=== PATIENT | female | born 1950 | race American Indian/Alaskan Native ===

== ENCOUNTER 2017-07-20 01:45 | Inpatient (IN) | payer SELFPAY ==
[2017-07-20 04:07] LABS: Basophils % (Auto) 0.3 % (0.0-1.8); Eosinophils % (Auto) 0.1 % (0.0-4.3); Hematocrit 44.8 % (30.3-42.9); Hemoglobin 14.4 gm/dl (10.1-14.3); Lymphocytes # (Auto) 1.5 K/mm3 (1.2-5.4); Lymphocytes % (Auto) 12.1 % (13.4-35.0); Mean Corpuscular HGB Conc 32 % (30-34); Mean Corpuscular Hemoglobin 29 pg (28-32); Mean Corpuscular Volume 89 fl (79-97); Monocytes # (Auto) 0.4 K/mm3 (0.0-0.8); Monocytes % (Auto) 3.4 % (0.0-7.3); Platelet Count 239 K/mm3 (140-440); Red Blood Count 5.06 M/mm3 (3.65-5.03)
[2017-07-20 04:43] LABS: Alanine Aminotransferase 24 units/L (7-56); Albumin 4.1 g/dL (3.9-5); BUN/Creatinine Ratio 16; Blood Urea Nitrogen 13 mg/dL (7-17); Calcium 9.8 mg/dL (8.4-10.2); Hemolysis Index 17
[2017-07-20] MEDS ORDERED: ZOFRAN IV ONE ×2 (05:08→05:20)
[2017-07-20] MEDS ORDERED: NACL 0.9% 1000 ML 1,000 ML IV ONE (05:20)
[2017-07-20] MEDS ORDERED: DILAUDID IV ONE ×3 (05:20→14:43)
--- NOTE | 2017-07-20 05:26 | Emergency Department Report ---
HPI - General Chief Complaint: Abdominal Pain Time Seen by Provider: 07/20/17 05:09 - HPI HPI: The patient is a 66-year-old female who presents for evaluation of abdominal pain. The patient reports sudden onset of severe generalized abdominal pain 3 hours prior to her arrival. She reports constant abdominal pain since onset, 10 /10 in severity, sharp and throbbing in quality, exacerbated with movement. She has also experienced nausea. The patient denies trauma to the abdomen, fever , chest pain, cough, dyspnea, hemoptysis, diarrhea, blood in the stool, dark tarry stool, dysuria, hematuria, flank pain, genital discharge. ED Past Medical Hx - Past Medical History Previous Medical History?: No - Surgical History Past Surgical History?: Yes Additional Surgical History: hysterectomy - Social History Smoking Status: Never Smoker Substance Use Type: None ED Review of Systems ROS: Stated complaint: ABDOMINAL PAIN, VOMITING Other details as noted in HPI Constitutional: denies: fever ENT: denies: throat or neck pain Respiratory: denies: cough, shortness of breath Cardiovascular: denies: chest pain Endocrine: denies unexplained weight loss or gain Gastrointestinal: reports abdominal pain, nausea Genitourinary: denies: dysuria Musculoskeletal: denies: leg swelling Skin: denies: rash Neurological: denies: headache Hematological/Lymphatic: denies: easy bleeding or easy bruising Psych: denies sadness or hopelessness Physical Exam - Physical Exam Vital Signs: Vital Signs 07/20/17 03:27 Temperature 97.3 F L Pulse Rate 101 H Respiratory 20 Rate Blood Pressure 152/97 O2 Sat by Pulse 96 Oximetry Physical Exam: General: well-nourished, well-developed, no acute distress Head: Normocephalic, atraumatic Eyes: normal sclera ENT: Mucous membranes are pale and dry Neck: trachea midline, neck supple, No neck stiffness, no cervical adenopathy Respiratory: Breath sounds equal bilaterally, no wheezing, rales, or rhonchi Cardio: S1 and S2 present, no murmurs, rubs, gallops, capillary refill is delayed Abdomen: Normoactive bowel sounds, soft abdomen, generalized tenderness to palpation present, no rigidity, no guarding or rebound tenderness Musc: No pitting edema Skin: No rash Neuro: no facial drooping, normal speech Psych: Normal affect ED Course Vital Signs 07/20/17 03:27 Temperature 97.3 F L Pulse Rate 101 H Respiratory 20 Rate Blood Pressure 152/97 O2 Sat by Pulse 96 Oximetry ED Medical Decision Making - Lab Data Result diagrams: 07/21/17 06:00 07/22/17 08:26 - Medical Decision Making The patient was seen and examined by myself. 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 On initial evaluation, the patient was found to be in mild distress secondary to her pain. Evaluation orders are placed. IV access is established and the patient is given 1 L normal saline fluid bolus and Zofran for nausea, and IV analgesic for pain. Lab results exhibited elevated WBC of 12.7. CT scan abdomen and pelvis is ordered with IV and oral contrast. CT scan is pending and the patient is signed off to the oncoming morning shift physician Dr. marinelli, who agrees to follow-up on pending imaging and labs and to arrange ultimate appropriate disposition. Critical care attestation.: If time is entered above; I have spent that time in minutes in the direct care of this critically ill patient, excluding procedure time. ED Disposition Clinical Impression: Acute generalized abdominal pain, Dehydration, Lactic acidosis, Ischemic bowel disease, Torsion of bowel Hypertension Qualifiers: Hypertension type: essential hypertension Qualified Code(s): I10 - Essential ( primary) hypertension Disposition: 09 OP ADMIT IP TO THIS HOSP Is pt being admited?: Yes Does the pt Need Aspirin: Yes Condition: Serious Time of Disposition: 05:28
[2017-07-20] MEDS ORDERED: NACL ONE (06:44)
[2017-07-20 11:38] LABS: Bacteria,Urine 1+ /HPF (Negative); Bilirubin,Urine NEG (Negative); Blood,Urine NEG (Negative); Color,Urine Yellow (Yellow); Nitrite,Urine NEG (Negative); Protein,Urine <15 mg/dL mg/dL (Negative); Urobilinogen,Urine < 2.0 mg/dL (<2.0)
[2017-07-20] MEDS ORDERED: NACL 0.9% 500 ML 500 ML ONE (12:10)
--- NOTE | 2017-07-20 14:16 | Cat Scan Report ---
CT abdomen and pelvis with contrast: Diffuse abdominal pain. Following intravenous and oral contrast administration transverse images are obtained from low chest to the ischium with coronal and sagittal 2-D reformatted images. Images of the lung bases demonstrates mild posterior areas of atelectasis. There is a small volume of ascites mostly around the upper abdomen and pelvis. The abdominal and retroperitoneal organs appear generally normal. The stomach is distended with contrast and a small amount of contrast is present in the nondilated proximal small bowel loops. In the mid and lower abdomen there are multiple dilated small bowel loops with a mildly thickened wall that are fluid-filled but do not contain contrast. The vascular structures of the mesentery appears to have a whirl configuration and the bowel loops appear to be aggregated to the right abdomen. There is a segment of bowel is narrowed but not necessarily twisted. The cecum is midline. The patient's uterus has been removed. There is significant degenerative narrowing of L5-S1 disc. Impressions: The findings are suspicious for vascular torsion and possible ischemic bowel. Dr. Swift has been notified.
--- NOTE | 2017-07-20 14:24 | Emergency Department Report ---
Blank Doc - Documentation Documentation: I was asked by the overnight ER physician, Dr. Fuentes, to follow-up on the patient's CT scan results of the abdomen and pelvis with by mouth and IV contrast and provide appropriate disposition. The CT scan was done sometime late morning. I was just called (2 PM) by the radiologist and notified of the concern for possible small bowel torsion and possible ischemic bowel. I went and saw the patient who said that the pain started a few hours prior to presentation to the emergency department. Since she has been in the emergency department the pain has improved with some IV fluid and pain medication. She denies any past medical history. She has a past surgical history of hysterectomy. I have added IV antibiotics on to the patient. The general surgeon on-call, Dr. Pineda, has been contacted and he is going to look at the CT scan results and then call back with recommendations. Dr Pineda saw the patient in the emergency department and did a physical examination and feels that the abdominal exam is completely with suspicion of whatever may have been torsed previously has resolved. He does not feel the patient requires any emergent surgical or procedural intervention. We will get a xray of the abdomen to make sure the contrast has passed through the intestines, PO Challenge her, and give some Tylenol for a slight headache she has. I plan to admit the patient overnight, to start as an observational stay, secondary to her elevated lactic acid level and abnormal CT scan. If the patient continues to have no significant abdominal pain overnight, she can potentially be discharged tomorrow. However if the abdominal pain returns or if there is any distress, the patient will already be here. Dr Delgado has graciously accepted to admit the patient to his service.
[2017-07-20] MEDS ORDERED: TYLENOL PO ONE (16:04)
[2017-07-20] MEDS ORDERED: ZOSYN/NS 4.5GM/100ML 4.5 GM/100 ML VIAL IV ONE (16:30)
--- NOTE | 2017-07-20 18:31 | Consultation ---
History of Present Illness Consult date: 07/20/17 Reason for consult: abdominal pain Requesting physician: HAWK BELTRAN Chief complaint: abdominal pain - History of present illness History of present illness: 66yo o/w healthy woman presented to ED last night with acute onset of abdominal pain. Pt reports that earlier in the day, she had a large meal that she did not chew properly. Later, that evening, she began to have increasing painful abdominal cramps that were associated with nausea and vomiting. She vomited small amounts that reflected what she had for lunch. She was able to tolerate the contrast without nausea or vomiting. She reports that now the pain and cramps have completely resolved. The nausea and vomiting are gone. She only has a headache and weakness now. She has never had anything like this before. no history of bowel obstruction. No complications during her hysterectomy procedure. Past History Past Surgical History: hysterectomy (no complications) Social history: denies: smoking, alcohol abuse, IV drug use Family history: no significant family history Medications and Allergies Allergies Allergy/AdvReac Type Severity Reaction Status Date / Time No Known Allergies Allergy Unverified 07/20/17 03:27 Active Meds: Active Medications Heparin Sodium (Porcine) (Heparin) 5,000 unit SUB-Q Q8HR MO Review of Systems - Constitutional weakness, no weight loss, no weight gain, no fever, no chills, no sweats, no night sweats - EENT Ears, nose, mouth and throat: other (dry mouth), no nasal congestion, no nasal discharge, no sinus pressure, no sinus pain - Cardiovascular no chest pain, no palpitations, no rapid/irregular heart beat - Respiratory no cough, no cough with sputum - Gastrointestinal abdominal pain (resolved), nausea (resolve), vomiting (resolved), no diarrhea, no constipation, no change in bowel habits, no hematemesis, no coffee ground emesis, no BRBPR, no melena, no hematochezia, no heartburn, no indigestion, no dyspepsia/bloating - Genitourinary Genitourinary: no dysuria - Integumentary no rash - Neurological weakness, headaches - Hematologic/Lymphatic no easy bruising, no easy bleeding Exam Vital Signs Temp Pulse Resp BP Pulse Ox 97.3 F L 101 H 20 152/97 96 07/20/17 03:27 07/20/17 03:27 07/20/17 03:27 07/20/17 03:27 07/20/17 03:27 - General physical appearance Positive: well developed, well nourished, no distress, no pain, other (very pleasant. Does not appear ill. Smiling during interview) - Eyes Positive: normal occular movement. Negative: icteric - Respiratory Positive: normal expansion, normal respiratory effort, clear to auscultation - Cardiovascular Rhythm: regular - Abdomen Abdomen: Present: soft, bowel sounds normal, surgical scars (well healed). Absent: tender, distended, masses, guarding, rigid, wound - Integumentary no rash - Neurologic Neurologic: alert and oriented to time, place and person, motor strength and sensation are grossly intact - Psychiatric Psychiatric: appropriate mood/affect, intact judgment & insight Results - Labs 07/20/17 03:38 07/20/17 03:38 Abnormal lab results 07/20/17 07/20/17 07/20/17 Range/Units 03:38 03:38 06:08 WBC 12.7 H (4.5-11.0) K/mm3 RBC 5.06 H (3.65-5.03) M/mm3 Hgb 14.4 H (10.1-14.3) gm/dl Hct 44.8 H (30.3-42.9) % Lymph % (Auto) 12.1 L (13.4-35.0) % Seg Neutrophils % 84.1 H (40.0-70.0) % Seg Neutrophils # 10.6 H (1.8-7.7) K/mm3 Potassium 3.5 L (3.6-5.0) mmol/L Carbon Dioxide 18 L (22-30) mmol/L Glucose 160 H (65-100) mg/dL Lactic Acid 5.10 H* (0.7-2.0) mmol/L Ur Specific [place] (1.003-1.030) 07/20/17 07/20/17 Range/Units 08:25 11:20 WBC (4.5-11.0) K/mm3 RBC (3.65-5.03) M/mm3 Hgb (10.1-14.3) gm/dl Hct (30.3-42.9) % Lymph % (Auto) (13.4-35.0) % Seg Neutrophils % (40.0-70.0) % Seg Neutrophils # (1.8-7.7) K/mm3 Potassium (3.6-5.0) mmol/L Carbon Dioxide (22-30) mmol/L Glucose (65-100) mg/dL Lactic Acid 2.80 H* (0.7-2.0) mmol/L Ur Specific [place] 1.041 H (1.003-1.030) Diabetes panel 07/20/17 Range/Units 03:38 Sodium 141 (137-145) mmol/L Potassium 3.5 L (3.6-5.0) mmol/L Chloride 101.6 (98-107) mmol/L Carbon Dioxide 18 L (22-30) mmol/L BUN 13 (7-17) mg/dL Creatinine 0.8 (0.7-1.2) mg/dL Glucose 160 H (65-100) mg/dL Calcium 9.8 (8.4-10.2) mg/dL AST 28 (5-40) units/L ALT 24 (7-56) units/L Alkaline Phosphatase 101 (35-129) units/L Total Protein 7.6 (6.3-8.2) g/dL Albumin 4.1 (3.9-5) g/dL Calcium panel 07/20/17 Range/Units 03:38 Calcium 9.8 (8.4-10.2) mg/dL Albumin 4.1 (3.9-5) g/dL Pituitary panel 07/20/17 Range/Units 03:38 Sodium 141 (137-145) mmol/L Potassium 3.5 L (3.6-5.0) mmol/L Chloride 101.6 (98-107) mmol/L Carbon Dioxide 18 L (22-30) mmol/L BUN 13 (7-17) mg/dL Creatinine 0.8 (0.7-1.2) mg/dL Glucose 160 H (65-100) mg/dL Calcium 9.8 (8.4-10.2) mg/dL Adrenal panel 07/20/17 Range/Units 03:38 Sodium 141 (137-145) mmol/L Potassium 3.5 L (3.6-5.0) mmol/L Chloride 101.6 (98-107) mmol/L Carbon Dioxide 18 L (22-30) mmol/L BUN 13 (7-17) mg/dL Creatinine 0.8 (0.7-1.2) mg/dL Glucose 160 H (65-100) mg/dL Calcium 9.8 (8.4-10.2) mg/dL Total Bilirubin 0.30 (0.1-1.2) mg/dL AST 28 (5-40) units/L ALT 24 (7-56) units/L Alkaline Phosphatase 101 (35-129) units/L Total Protein 7.6 (6.3-8.2) g/dL Albumin 4.1 (3.9-5) g/dL - Imaging CT scan - abdomen: report reviewed, image reviewed Assessment and Plan - Patient Problems (1) Acute generalized abdominal pain Onset Date: ~07/19/17 Current Visit: Yes Status: Acute Plan to address problem: Issue has resolved. There was a concern for possible obstruction. Clinically, patient does not have anything to suggest obstruction or bowel compromise. No surgical intervention needed at this time. Rec: 1) Clear liquid diet 2) hydration with IV fluid tonight 3) labs in AM. Thank you for the consult. Will follow with you. time=60min
[2017-07-20] MEDS ORDERED: CARDIZEM IV ONE (18:38)
--- NOTE | 2017-07-20 18:40 | History and Physical Report ---
History of Present Illness Date of examination: 07/20/17 Date of admission: 07/20/17 16:27 Chief complaint: N History of present illness: History of present illness: 66 y/o AAF with no significant PMH comes last night for acute onset of abdominal pain associated with nausea and vomiting .Apparently she had a large meal and did not chew properly.Has been vomiting the food she has ingested.Had CT abdomen this am which showed vascular torsion and poss ischemic bowel.Her symptoms resolved while in ER by the time she was evaluated by surgery. Surgery feels that volvulus /vascular torsion resolved spontaneously..Patient had no symptoms for past 4hrs.Still feeling very weak because of multiple episodes of vomiting.Feels very weak. No fever or chills.no recent travel.Did not eat outside. Past History PMH No HTN Past Surgical History: hysterectomy (no complications) Social history: denies: smoking, alcohol abuse, IV drug use Family history: no significant family history Review of Systems - Constitutional weakness, no weight loss, no weight gain, no fever, no chills, no sweats, no night sweats - EENT Ears, nose, mouth and throat: other (dry mouth), no nasal congestion, no nasal discharge, no sinus pressure, no sinus pain - Cardiovascular no chest pain, no palpitations, no rapid/irregular heart beat - Respiratory no cough, no cough with sputum - Gastrointestinal abdominal pain (resolved), nausea (resolve), vomiting (resolved), no diarrhea, no constipation, no change in bowel habits, no hematemesis, no coffee ground emesis, no BRBPR, no melena, no hematochezia, no heartburn, no indigestion, no dyspepsia/bloating - Genitourinary Genitourinary: no dysuria - Integumentary no rash - Neurological weakness, headaches - Hematologic/Lymphatic no easy bruising, no easy bleeding Past History Past Surgical History: hysterectomy (no complications) Social history: denies: smoking, alcohol abuse, IV drug use Family history: no significant family history Medications and Allergies Allergies Allergy/AdvReac Type Severity Reaction Status Date / Time No Known Allergies Allergy Unverified 07/20/17 03:27 Active Meds: Active Medications Heparin Sodium (Porcine) (Heparin) 5,000 unit SUB-Q Q8HR MO Exam - Physical Exam Narrative exam: Lying comfortably - Constitutional Vitals: Temp Pulse Resp BP Pulse Ox 97.3 F L 101 H 18 164/99 96 07/20/17 03:27 07/20/17 03:27 07/20/17 06:06 07/20/17 06:46 07/20/17 06:46 General appearance: Present: no acute distress, well-nourished - EENT Eyes: Present: PERRL ENT: hearing intact, clear oral mucosa - Neck Neck: Present: supple, normal ROM - Respiratory Respiratory effort: normal Respiratory: bilateral: CTA - Cardiovascular Heart rate: 70 Rhythm: regular Heart Sounds: Present: S1 & S2. Absent: rub, click - Extremities Extremities: no ischemia, pulses intact, pulses symmetrical, No edema Peripheral Pulses: within normal limits - Abdominal General gastrointestinal: Present: soft, non-tender, non-distended, normal bowel sounds Female genitourinary: Present: normal - Rectal Rectal Exam: deferred - Integumentary Integumentary: Present: clear, warm, dry - Musculoskeletal Musculoskeletal: gait normal, strength equal bilaterally - Psychiatric Psychiatric: appropriate mood/affect, intact judgment & insight - Neurologic Neurologic: CNII-XII intact, moves all extremities - Allied Health Allied health notes reviewed: nursing, case management Results - Labs CBC & Chem 7: 07/20/17 03:38 07/20/17 03:38 Labs: Laboratory Last Values WBC 12.7 K/mm3 (4.5-11.0) H 07/20/17 03:38 RBC 5.06 M/mm3 (3.65-5.03) H 07/20/17 03:38 Hgb 14.4 gm/dl (10.1-14.3) H 07/20/17 03:38 Hct 44.8 % (30.3-42.9) H 07/20/17 03:38 MCV 89 fl (79-97) 07/20/17 03:38 MCH 29 pg (28-32) 07/20/17 03:38 MCHC 32 % (30-34) 07/20/17 03:38 RDW 15.0 % (13.2-15.2) 07/20/17 03:38 Plt Count 239 K/mm3 (140-440) 07/20/17 03:38 Lymph % (Auto) 12.1 % (13.4-35.0) L 07/20/17 03:38 [place] % (Auto) 3.4 % (0.0-7.3) 07/20/17 03:38 Eos % (Auto) 0.1 % (0.0-4.3) 07/20/17 03:38 Baso % (Auto) 0.3 % (0.0-1.8) 07/20/17 03:38 Lymph # 1.5 K/mm3 (1.2-5.4) 07/20/17 03:38 Barren # 0.4 K/mm3 (0.0-0.8) 07/20/17 03:38 Eos # 0.0 K/mm3 (0.0-0.4) 07/20/17 03:38 Baso # 0.0 K/mm3 (0.0-0.1) 07/20/17 03:38 Seg Neutrophils % 84.1 % (40.0-70.0) H 07/20/17 03:38 Seg Neutrophils # 10.6 K/mm3 (1.8-7.7) H 07/20/17 03:38 Sodium 141 mmol/L (137-145) 07/20/17 03:38 Potassium 3.5 mmol/L (3.6-5.0) L 07/20/17 03:38 Chloride 101.6 mmol/L (98-107) 07/20/17 03:38 Carbon Dioxide 18 mmol/L (22-30) L 07/20/17 03:38 Anion Gap 25 mmol/L 07/20/17 03:38 BUN 13 mg/dL (7-17) 07/20/17 03:38 Creatinine 0.8 mg/dL (0.7-1.2) 07/20/17 03:38 Estimated GFR > 60 ml/min 07/20/17 03:38 BUN/Creatinine Ratio 16 % 07/20/17 03:38 Glucose 160 mg/dL (65-100) H 07/20/17 03:38 Lactic Acid 2.80 mmol/L (0.7-2.0) H* 07/20/17 08:25 Calcium 9.8 mg/dL (8.4-10.2) 07/20/17 03:38 Total Bilirubin 0.30 mg/dL (0.1-1.2) 07/20/17 03:38 AST 28 units/L (5-40) 07/20/17 03:38 ALT 24 units/L (7-56) 07/20/17 03:38 Alkaline Phosphatase 101 units/L (35-129) 07/20/17 03:38 Total Protein 7.6 g/dL (6.3-8.2) 07/20/17 03:38 Albumin 4.1 g/dL (3.9-5) 07/20/17 03:38 Albumin/Globulin Ratio 1.2 % 07/20/17 03:38 Lipase 18 units/L (13-60) 07/20/17 03:38 Urine Color Yellow (Yellow) 07/20/17 11:20 Urine Turbidity Clear (Clear) 07/20/17 11:20 Urine pH 6.0 (5.0-7.0) 07/20/17 11:20 Ur Specific [place] 1.041 (1.003-1.030) H 07/20/17 11:20 Urine Protein <15 mg/dl mg/dL (Negative) 07/20/17 11:20 Urine Glucose (UA) Neg mg/dL (Negative) 07/20/17 11:20 Urine Ketones Tr mg/dL (Negative) 07/20/17 11:20 Urine Blood Neg (Negative) 07/20/17 11:20 Urine Nitrite Neg (Negative) 07/20/17 11:20 Urine Bilirubin Neg (Negative) 07/20/17 11:20 Urine Urobilinogen < 2.0 mg/dL (<2.0) 07/20/17 11:20 Ur Leukocyte Esterase Tr (Negative) 07/20/17 11:20 Urine WBC (Auto) 6.0 /HPF (0.0-6.0) 07/20/17 11:20 Urine RBC (Auto) 1.0 /HPF (0.0-6.0) 07/20/17 11:20 U Epithel Cells (Auto) 1.0 /HPF (0-13.0) 07/20/17 11:20 Urine Bacteria (Auto) 1+ /HPF (Negative) 07/20/17 11:20 - Imaging and Cardiology CT scan - abdomen: report reviewed (Suspicious for vascular torsion and ischemic bowel ) Assessment and Plan Advance Directives: Yes (full code) VTE prophylaxis?: Chemical Plan of care discussed with patient/family: Yes - Patient Problems (1) Acute generalized abdominal pain Onset Date: ~07/19/17 Current Visit: Yes Status: Acute Plan to address problem: Patient had transient obstructive ileus /vascular torsion which apparently resolved spontaneously while in ER.Clinically better while in ER during my exam. Feels weak and dehydrated. Hence admission for IV fluids and sx tx for vomiting. (2) Hypertension Current Visit: Yes Status: Acute Qualifiers: Hypertension type: essential hypertension Qualified Code(s): I10 - Essential (primary) hypertension Plan to address problem: New onset Probably sec to pain. Will treat with IV Hydralazine and trend BP readings.Initiate anti hypertensives at discharge if HTN confirmed. (3) Dehydration Current Visit: Yes Status: Acute Plan to address problem: IV fluids (4) Lactic acidosis Current Visit: Yes Status: Acute Plan to address problem: Elevated lactic acid sec to vomiting.No sepsis.No Abx at this point (5) Hypokalemia Current Visit: Yes Status: Acute Plan to address problem: KCL supplemented (6) DVT prophylaxis Current Visit: Yes Status: Acute Plan to address problem: on Lovenox
[2017-07-20] MEDS ORDERED: MORPHINE IV PRN (18:41)
[2017-07-20] MEDS ORDERED: AMBIEN PO PRN (18:41)
[2017-07-20] MEDS ORDERED: REGLAN IV PRN (18:41)
[2017-07-20] MEDS ORDERED: DULCOLAX PR PRN (18:41)
[2017-07-20] MEDS ORDERED: TYLENOL PO PRN (18:41)
[2017-07-20] MEDS ORDERED: MILK OF MAGNESIA PO PRN (18:41)
--- NOTE | 2017-07-20 19:20 | XRay Report ---
FINAL REPORT PROCEDURE: XR ABDOMEN 2V TECHNIQUE: Abdominal series, including supine and upright AP views. HISTORY: Abd pain COMPARISON: No prior studies are available for comparison. FINDINGS: There appears to be a large amount of oral contrast nearly filling the stomach. There also is faintly visualized contrast excreting from the kidneys and filling the urinary bladder. These structures show no focal abnormalities. I do not see evidence of bowel obstruction or free intraperitoneal gas. No abnormal masses are detected. Moderate degenerative changes seen in the lower lumbar spine. No acute bony abnormalities are identified. IMPRESSION: Contrast agents visualized as described. No acute abnormalities are identified. Degenerative changes lower lumbar spine.
[2017-07-20] MEDS ORDERED: K-DUR PO ONE (19:59)
[2017-07-20] MEDS ORDERED: HEPARIN SUB-Q SCH (22:00)
[2017-07-20] MEDS: PERCOCET 5/325 PO PRN (22:27)
[2017-07-20] MEDS: PEPCID IV SCH (22:29)
[2017-07-20] MEDS: D5NS 1,000 ML IV SCH (22:30)
[2017-07-20] MEDS: LOVENOX SUB-Q SCH (22:30)
[2017-07-21] MEDS: APRESOLINE IV PRN ×3 (01:39→21:36)
[2017-07-21] MEDS: ZOFRAN IV PRN (02:24)
[2017-07-21] MEDS: MORPHINE IV PRN ×2 (06:01→10:03)
[2017-07-21 06:44] LABS: Basophils % (Auto) 0.5 % (0.0-1.8); Eosinophils % (Auto) 0.1 % (0.0-4.3); Hematocrit 42.2 % (30.3-42.9); Hemoglobin 14.1 gm/dl (10.1-14.3); Lymphocytes # (Auto) 0.9 K/mm3 (1.2-5.4); Lymphocytes % (Auto) 9.9 % (13.4-35.0); Mean Corpuscular HGB Conc 33 % (30-34); Mean Corpuscular Hemoglobin 29 pg (28-32); Mean Corpuscular Volume 86 fl (79-97); Monocytes # (Auto) 0.5 K/mm3 (0.0-0.8); Monocytes % (Auto) 5.1 % (0.0-7.3); Platelet Count 266 K/mm3 (140-440); Red Blood Count 4.93 M/mm3 (3.65-5.03); Red Cell Distribution Width 14.3 % (13.2-15.2)
[2017-07-21 07:12] LABS: Alanine Aminotransferase 19 units/L (7-56); Albumin 3.9 g/dL (3.9-5); BUN/Creatinine Ratio 13; Blood Urea Nitrogen 8 mg/dL (7-17); Calcium 9.5 mg/dL (8.4-10.2); Hemolysis Index 6
[2017-07-21] MEDS: D5NS 1,000 ML IV SCH ×2 (08:07→23:53)
--- NOTE | 2017-07-21 08:49 | Progress Note ---
Assessment and Plan Assessment and plan: 66 y/o AAF with no significant PMH comes last night for acute onset of abdominal pain associated with nausea and vomiting .Apparently she had a large meal and did not chew properly.Has been vomiting the food she has ingested.Had CT abdomen this am which showed vascular torsion .Her symptoms resolved while in ER by the time she was evaluated by surgery. 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 HTN urgency optimize meds Lactic acidosis: due to Acute abdomen, now resolved; not due to sepsis Hypokalemia KCL supplemented DVT prophylaxis on Lovenox History Interval history: had n/v still and denies abdominal pain no cp, no sob, no fevers, no focal weakness Hospitalist Physical - Constitutional Vitals: Temp Pulse Resp BP Pulse Ox 98.1 F 90 18 151/79 100 07/21/17 03:54 07/21/17 03:54 07/21/17 03:54 07/21/17 03:54 07/21/17 03:54 General appearance: Present: no acute distress, well-nourished - EENT Eyes: Present: PERRL ENT: hearing intact - Neck Neck: Present: supple - Respiratory Respiratory effort: normal Respiratory: bilateral: CTA - Cardiovascular Rhythm: regular Heart Sounds: Present: S1 & S2 - Extremities Extremities: no ischemia Peripheral Pulses: within normal limits - Abdominal General gastrointestinal: soft, non-tender - Integumentary Integumentary: Present: clear, warm - Psychiatric Psychiatric: appropriate mood/affect, cooperative - Neurologic Neurologic: CNII-XII intact, moves all extremities Results - Labs CBC & Chem 7: 07/21/17 06:00 07/22/17 08:26 Labs: Laboratory Last Values WBC 8.8 K/mm3 (4.5-11.0) 07/21/17 06:00 RBC 4.93 M/mm3 (3.65-5.03) 07/21/17 06:00 Hgb 14.1 gm/dl (10.1-14.3) 07/21/17 06:00 Hct 42.2 % (30.3-42.9) 07/21/17 06:00 MCV 86 fl (79-97) 07/21/17 06:00 MCH 29 pg (28-32) 07/21/17 06:00 MCHC 33 % (30-34) 07/21/17 06:00 RDW 14.3 % (13.2-15.2) 07/21/17 06:00 Plt Count 266 K/mm3 (140-440) 07/21/17 06:00 Lymph % (Auto) 9.9 % (13.4-35.0) L 07/21/17 06:00 [place] % (Auto) 5.1 % (0.0-7.3) 07/21/17 06:00 Eos % (Auto) 0.1 % (0.0-4.3) 07/21/17 06:00 Baso % (Auto) 0.5 % (0.0-1.8) 07/21/17 06:00 Lymph # 0.9 K/mm3 (1.2-5.4) L 07/21/17 06:00 [place] # 0.5 K/mm3 (0.0-0.8) 07/21/17 06:00 Eos # 0.0 K/mm3 (0.0-0.4) 07/21/17 06:00 Baso # 0.0 K/mm3 (0.0-0.1) 07/21/17 06:00 Seg Neutrophils % 84.4 % (40.0-70.0) H 07/21/17 06:00 Seg Neutrophils # 7.4 K/mm3 (1.8-7.7) 07/21/17 06:00 Sodium 140 mmol/L (137-145) 07/21/17 06:00 Potassium 3.5 mmol/L (3.6-5.0) L 07/21/17 06:00 Chloride 101.4 mmol/L (98-107) 07/21/17 06:00 Carbon Dioxide 23 mmol/L (22-30) 07/21/17 06:00 Anion Gap 19 mmol/L 07/21/17 06:00 BUN 8 mg/dL (7-17) 07/21/17 06:00 Creatinine 0.6 mg/dL (0.7-1.2) L 07/21/17 06:00 Estimated GFR > 60 ml/min 07/21/17 06:00 BUN/Creatinine Ratio 13 % 07/21/17 06:00 Glucose 142 mg/dL (65-100) H 07/21/17 06:00 Hemoglobin A1c 5.3 % (4-6) 07/20/17 20:11 Lactic Acid 2.80 mmol/L (0.7-2.0) H* 07/20/17 08:25 Calcium 9.5 mg/dL (8.4-10.2) 07/21/17 06:00 Total Bilirubin 0.50 mg/dL (0.1-1.2) 07/21/17 06:00 AST 24 units/L (5-40) 07/21/17 06:00 ALT 19 units/L (7-56) 07/21/17 06:00 Alkaline Phosphatase 86 units/L (35-129) 07/21/17 06:00 Total Protein 7.2 g/dL (6.3-8.2) 07/21/17 06:00 Albumin 3.9 g/dL (3.9-5) 07/21/17 06:00 Albumin/Globulin Ratio 1.2 % 07/21/17 06:00 Lipase 18 units/L (13-60) 07/20/17 03:38 Urine Color Yellow (Yellow) 07/20/17 11:20 Urine Turbidity Clear (Clear) 07/20/17 11:20 Urine pH 6.0 (5.0-7.0) 07/20/17 11:20 Ur Specific [place] 1.041 (1.003-1.030) H 07/20/17 11:20 Urine Protein <15 mg/dl mg/dL (Negative) 07/20/17 11:20 Urine Glucose (UA) Neg mg/dL (Negative) 07/20/17 11:20 Urine Ketones Tr mg/dL (Negative) 07/20/17 11:20 Urine Blood Neg (Negative) 07/20/17 11:20 Urine Nitrite Neg (Negative) 07/20/17 11:20 Urine Bilirubin Neg (Negative) 07/20/17 11:20 Urine Urobilinogen < 2.0 mg/dL (<2.0) 07/20/17 11:20 Ur Leukocyte Esterase Tr (Negative) 07/20/17 11:20 Urine WBC (Auto) 6.0 /HPF (0.0-6.0) 07/20/17 11:20 Urine RBC (Auto) 1.0 /HPF (0.0-6.0) 07/20/17 11:20 U Epithel Cells (Auto) 1.0 /HPF (0-13.0) 07/20/17 11:20 Urine Bacteria (Auto) 1+ /HPF (Negative) 07/20/17 11:20 - Imaging and Cardiology Abdominal x-ray: image reviewed (no acute findings)
[2017-07-21] MEDS: PEPCID IV SCH ×2 (10:05→23:57)
[2017-07-21] MEDS ORDERED: KCL 10MEQ/100ML 10 MEQ/100 ML BAG IV SCH (12:00)
[2017-07-21] MEDS ORDERED: KCL 40 MEQ in NACL 0.9% 500 ML 500 ML IV ONE (13:00)
[2017-07-21] MEDS ORDERED: FIORICET PO ONE (15:00)
--- NOTE | 2017-07-21 15:22 | Progress Note ---
Assessment and Plan - Patient Problems (1) Acute generalized abdominal pain Onset Date: ~07/19/17 Current Visit: Yes Status: Acute Plan to address problem: Even though her labs are normal, she clinically does not look well. Her abdominal exam is completely benign. I do not feel this is related to the CT findings from yesterday. In talking to them (patient and daughter) more, it sounds like the patient gets like this when she has a bad headache. Nothing has helped the headache so far. She normally takes BC powder. I discussed all this with Dr. Solis. I wonder if this clinical appearance is related to her headaches as her labs, abdominal exam, and vitals are all normal. Rec: 1) Clear liquid diet 2) Fioricet for headache 3) Scheduled Zofran for today 4) Simethicone for gassy feeling 5) Abd X-ray Will follow with you. time=30min Subjective Date of service: 07/21/17 Patient Reports: Positive: no flatus, no bowel movement, nausea, vomiting, other (still with headache. Feels pressure in abdomen. No pain in abdomen. ) Objective Vital Signs - 12hr 07/21/17 07/21/17 07/21/17 03:54 07:56 10:14 Temperature 98.1 F 99.6 F Pulse Rate 90 90 90 Respiratory 18 18 Rate Blood Pressure 151/79 161/92 161/92 O2 Sat by Pulse 100 98 Oximetry 07/21/17 12:48 Temperature 99.1 F Pulse Rate 94 H Respiratory 18 Rate Blood Pressure 162/77 O2 Sat by Pulse 98 Oximetry - General physical appearance other (does not look well. ) - Eyes normal occular movement - Respiratory normal expansion, normal respiratory effort - Abdomen soft, not tender, bowel sounds hypoactive, not guarding, not rigid, other (no tympany) - Integumentary no rash - Psychiatric oriented to time, oriented to person, oriented to place, speech is normal, memory intact - Labs 07/21/17 06:00 07/21/17 06:00 Diabetes panel 07/20/17 07/21/17 Range/Units 20:11 06:00 Sodium 140 (137-145) mmol/L Potassium 3.5 L (3.6-5.0) mmol/L Chloride 101.4 (98-107) mmol/L Carbon Dioxide 23 (22-30) mmol/L BUN 8 (7-17) mg/dL Creatinine 0.6 L (0.7-1.2) mg/dL Glucose 142 H (65-100) mg/dL Hemoglobin A1c 5.3 (4-6) % Calcium 9.5 (8.4-10.2) mg/dL AST 24 (5-40) units/L ALT 19 (7-56) units/L Alkaline Phosphatase 86 (35-129) units/L Total Protein 7.2 (6.3-8.2) g/dL Albumin 3.9 (3.9-5) g/dL Calcium panel 07/21/17 Range/Units 06:00 Calcium 9.5 (8.4-10.2) mg/dL Albumin 3.9 (3.9-5) g/dL Pituitary panel 07/21/17 Range/Units 06:00 Sodium 140 (137-145) mmol/L Potassium 3.5 L (3.6-5.0) mmol/L Chloride 101.4 (98-107) mmol/L Carbon Dioxide 23 (22-30) mmol/L BUN 8 (7-17) mg/dL Creatinine 0.6 L (0.7-1.2) mg/dL Glucose 142 H (65-100) mg/dL Calcium 9.5 (8.4-10.2) mg/dL Adrenal panel 07/21/17 Range/Units 06:00 Sodium 140 (137-145) mmol/L Potassium 3.5 L (3.6-5.0) mmol/L Chloride 101.4 (98-107) mmol/L Carbon Dioxide 23 (22-30) mmol/L BUN 8 (7-17) mg/dL Creatinine 0.6 L (0.7-1.2) mg/dL Glucose 142 H (65-100) mg/dL Calcium 9.5 (8.4-10.2) mg/dL Total Bilirubin 0.50 (0.1-1.2) mg/dL AST 24 (5-40) units/L ALT 19 (7-56) units/L Alkaline Phosphatase 86 (35-129) units/L Total Protein 7.2 (6.3-8.2) g/dL Albumin 3.9 (3.9-5) g/dL
--- NOTE | 2017-07-21 15:42 | XRay Report ---
FINAL REPORT PROCEDURE: XR ABDOMEN 1V AP TECHNIQUE: Abdominal radiograph, single supine AP view. HISTORY: abdominal pain COMPARISON: No prior studies are available for comparison. FINDINGS: Bowel gas pattern:Nonobstructive. Masses or calcifications:None. Bony structures:No significant abnormality. Other:None. IMPRESSION: No acute or focal abnormality
[2017-07-21] MEDS: FIORICET PO PRN (21:33)
--- NOTE | 2017-07-21 21:41 | Event Note ---
Date: 07/21/17 Reviewed xray. Went to see patient. Patient was resting comfortably. Spoke with daughter. She reports that patient tried fioricet and seemed to feel better. Patient reported to her that she felt gassy. Patient was able to sit up in chair and walk a short distance. I told the daughter that the xray was normal. Will try to get headache and gas under control and then reassess her overall condition.
[2017-07-21] MEDS: LOVENOX SUB-Q SCH (23:57)
[2017-07-21] MEDS: MYLICON PO PRN (23:58)
[2017-07-22] MEDS: FIORICET PO PRN (05:40)
[2017-07-22 08:52] LABS: BUN/Creatinine Ratio 12; Blood Urea Nitrogen 7 mg/dL (7-17); Calcium 9.4 mg/dL (8.4-10.2); Hemolysis Index 5
[2017-07-22] MEDS: APRESOLINE IV PRN (09:35)
[2017-07-22] MEDS: ZOFRAN IV PRN ×2 (09:36→20:46)
[2017-07-22] MEDS: PEPCID IV SCH ×2 (12:52→22:32)
[2017-07-22] MEDS: ZESTRIL PO SCH (12:52)
[2017-07-22] MEDS: D5NS 1,000 ML IV SCH (12:53)
[2017-07-22] MEDS ORDERED: ZOFRAN IV PRN (13:51)
[2017-07-22] MEDS ORDERED: PHENERGAN PR PRN (13:51)
--- NOTE | 2017-07-22 13:53 | Progress Note ---
Assessment and Plan Assessment and plan: 66 y/o AAF with no significant PMH comes last night for acute onset of abdominal pain associated with nausea and vomiting .Apparently she had a large meal and did not chew properly.Has been vomiting the food she has ingested.Had CT abdomen this am which showed vascular torsion .Her symptoms resolved while in ER by the time she was evaluated by surgery. Surgery feels that volvulus / vascular torsion resolved spontaneously, but she is still having n/v Acute intestinal volvulus -has now resolved Intractable N/V appears to be related to hydralazine administration -dc hydralazine, phernegan prn REEDER now resolved, did not respond to fioricet, so will dc it HTN urgency optimize meds, avoid hydralazine Lactic acidosis: due to Acute abdomen, now resolved; not due to sepsis Hypokalemia KCL supplemented DVT prophylaxis on Lovenox History Interval history: had n/v still and denies abdominal pain no cp, no sob, no fevers, no focal weakness Hospitalist Physical - Physical exam Narrative exam: General appearance: Present: no acute distress, well-nourished - EENT Eyes: Present: PERRL ENT: hearing intact - Neck Neck: Present: supple - Respiratory Respiratory effort: normal Respiratory: bilateral: CTA - Cardiovascular Rhythm: regular Heart Sounds: Present: S1 & S2 - Extremities Extremities: no ischemia Peripheral Pulses: within normal limits - Abdominal General gastrointestinal: soft, non-tender - Integumentary Integumentary: Present: clear, warm - Psychiatric Psychiatric: appropriate mood/affect, cooperative - Neurologic Neurologic: CNII-XII intact, moves all extremities - Constitutional Vitals: Temp Pulse Resp BP Pulse Ox 99.7 F H 100 H 20 140/77 96 07/22/17 12:18 07/22/17 12:52 07/22/17 12:18 07/22/17 12:52 07/22/17 12:18 General appearance: Present: no acute distress, well-nourished Results - Labs CBC & Chem 7: 07/21/17 06:00 07/22/17 08:26 Labs: Laboratory Last Values WBC 8.8 K/mm3 (4.5-11.0) 07/21/17 06:00 RBC 4.93 M/mm3 (3.65-5.03) 07/21/17 06:00 Hgb 14.1 gm/dl (10.1-14.3) 07/21/17 06:00 Hct 42.2 % (30.3-42.9) 07/21/17 06:00 MCV 86 fl (79-97) 07/21/17 06:00 MCH 29 pg (28-32) 07/21/17 06:00 MCHC 33 % (30-34) 07/21/17 06:00 RDW 14.3 % (13.2-15.2) 07/21/17 06:00 Plt Count 266 K/mm3 (140-440) 07/21/17 06:00 Lymph % (Auto) 9.9 % (13.4-35.0) L 07/21/17 06:00 [place] % (Auto) 5.1 % (0.0-7.3) 07/21/17 06:00 Eos % (Auto) 0.1 % (0.0-4.3) 07/21/17 06:00 Baso % (Auto) 0.5 % (0.0-1.8) 07/21/17 06:00 Lymph # 0.9 K/mm3 (1.2-5.4) L 07/21/17 06:00 [place] # 0.5 K/mm3 (0.0-0.8) 07/21/17 06:00 Eos # 0.0 K/mm3 (0.0-0.4) 07/21/17 06:00 Baso # 0.0 K/mm3 (0.0-0.1) 07/21/17 06:00 Seg Neutrophils % 84.4 % (40.0-70.0) H 07/21/17 06:00 Seg Neutrophils # 7.4 K/mm3 (1.8-7.7) 07/21/17 06:00 Sodium 137 mmol/L (137-145) 07/22/17 08:26 Potassium 3.4 mmol/L (3.6-5.0) L 07/22/17 08:26 Chloride 100.8 mmol/L (98-107) 07/22/17 08:26 Carbon Dioxide 23 mmol/L (22-30) 07/22/17 08:26 Anion Gap 17 mmol/L 07/22/17 08:26 BUN 7 mg/dL (7-17) 07/22/17 08:26 Creatinine 0.6 mg/dL (0.7-1.2) L 07/22/17 08:26 Estimated GFR > 60 ml/min 07/22/17 08:26 BUN/Creatinine Ratio 12 % 07/22/17 08:26 Glucose 118 mg/dL (65-100) H 07/22/17 08:26 Hemoglobin A1c 5.3 % (4-6) 07/20/17 20:11 Lactic Acid 2.80 mmol/L (0.7-2.0) H* 07/20/17 08:25 Calcium 9.4 mg/dL (8.4-10.2) 07/22/17 08:26 Phosphorus 2.20 mg/dL (2.5-4.5) L 07/22/17 08:26 Magnesium 1.90 mg/dL (1.7-2.3) 07/22/17 08:26 Total Bilirubin 0.50 mg/dL (0.1-1.2) 07/21/17 06:00 AST 24 units/L (5-40) 07/21/17 06:00 ALT 19 units/L (7-56) 07/21/17 06:00 Alkaline Phosphatase 86 units/L (35-129) 07/21/17 06:00 Total Protein 7.2 g/dL (6.3-8.2) 07/21/17 06:00 Albumin 3.9 g/dL (3.9-5) 07/21/17 06:00 Albumin/Globulin Ratio 1.2 % 07/21/17 06:00 Lipase 18 units/L (13-60) 07/20/17 03:38 Urine Color Yellow (Yellow) 07/20/17 11:20 Urine Turbidity Clear (Clear) 07/20/17 11:20 Urine pH 6.0 (5.0-7.0) 07/20/17 11:20 Ur Specific [place] 1.041 (1.003-1.030) H 07/20/17 11:20 Urine Protein <15 mg/dl mg/dL (Negative) 07/20/17 11:20 Urine Glucose (UA) Neg mg/dL (Negative) 07/20/17 11:20 Urine Ketones Tr mg/dL (Negative) 07/20/17 11:20 Urine Blood Neg (Negative) 07/20/17 11:20 Urine Nitrite Neg (Negative) 07/20/17 11:20 Urine Bilirubin Neg (Negative) 07/20/17 11:20 Urine Urobilinogen < 2.0 mg/dL (<2.0) 07/20/17 11:20 Ur Leukocyte Esterase Tr (Negative) 07/20/17 11:20 Urine WBC (Auto) 6.0 /HPF (0.0-6.0) 07/20/17 11:20 Urine RBC (Auto) 1.0 /HPF (0.0-6.0) 07/20/17 11:20 U Epithel Cells (Auto) 1.0 /HPF (0-13.0) 07/20/17 11:20 Urine Bacteria (Auto) 1+ /HPF (Negative) 07/20/17 11:20
[2017-07-22] MEDS ORDERED: KPHOS 45 MMOL in NACL 0.9% 500 ML 500 ML IV ONE (14:00)
--- NOTE | 2017-07-22 14:25 | Progress Note ---
Assessment and Plan - Patient Problems (1) Acute generalized abdominal pain Onset Date: ~07/19/17 Current Visit: Yes Status: Acute Plan to address problem: Even though her labs are normal, she clinically does not look well. Her abdominal exam is completely benign. I do not feel this is related to the CT findings from yesterday. The daughter mentioned that at 7am today, patient was feeling much better. She had more energy, the pain was gone and nausea was much improved. After she got her blood pressure and nausea meds, she got significantly worse. I discussed all this with Dr. Solis. Hydralazine and zofran were given at 0935 which fits with the daughter's report. We will stop the hydralazine and re- evaluate. Rec: 1) Clear liquid diet - advance as tolerated. 2)d/c hydralazine 3) monitor Will follow with you. time=20min Subjective Date of service: 07/22/17 Patient Reports: Positive: pain is less (no abdominal pain. Headache is better) , nausea (very bad), other (feels very bad. ) Objective Vital Signs - 12hr 07/22/17 07/22/17 07/22/17 07:58 09:35 12:18 Temperature 98.2 F 99.7 F H Pulse Rate 91 H 91 H 97 H Respiratory 20 20 Rate Blood Pressure 165/95 165/95 140/77 O2 Sat by Pulse 97 96 Oximetry 07/22/17 12:52 Temperature Pulse Rate 100 H Respiratory Rate Blood Pressure 140/77 O2 Sat by Pulse Oximetry - General physical appearance other (looks more ill.) - Respiratory normal expansion, normal respiratory effort - Abdomen soft, not tender, bowel sounds hypoactive, not distended, not guarding, not rigid - Integumentary no rash - Labs 07/21/17 06:00 07/22/17 08:26 Diabetes panel 07/22/17 Range/Units 08:26 Sodium 137 (137-145) mmol/L Potassium 3.4 L (3.6-5.0) mmol/L Chloride 100.8 (98-107) mmol/L Carbon Dioxide 23 (22-30) mmol/L BUN 7 (7-17) mg/dL Creatinine 0.6 L (0.7-1.2) mg/dL Glucose 118 H (65-100) mg/dL Calcium 9.4 (8.4-10.2) mg/dL Calcium panel 07/22/17 Range/Units 08:26 Calcium 9.4 (8.4-10.2) mg/dL Phosphorus 2.20 L (2.5-4.5) mg/dL Pituitary panel 07/22/17 Range/Units 08:26 Sodium 137 (137-145) mmol/L Potassium 3.4 L (3.6-5.0) mmol/L Chloride 100.8 (98-107) mmol/L Carbon Dioxide 23 (22-30) mmol/L BUN 7 (7-17) mg/dL Creatinine 0.6 L (0.7-1.2) mg/dL Glucose 118 H (65-100) mg/dL Calcium 9.4 (8.4-10.2) mg/dL Adrenal panel 07/22/17 Range/Units 08:26 Sodium 137 (137-145) mmol/L Potassium 3.4 L (3.6-5.0) mmol/L Chloride 100.8 (98-107) mmol/L Carbon Dioxide 23 (22-30) mmol/L BUN 7 (7-17) mg/dL Creatinine 0.6 L (0.7-1.2) mg/dL Glucose 118 H (65-100) mg/dL Calcium 9.4 (8.4-10.2) mg/dL
[2017-07-22] MEDS: MYLICON PO PRN (20:46)
[2017-07-22] MEDS: MORPHINE IV PRN (21:49)
[2017-07-22] MEDS: LOVENOX SUB-Q SCH (22:33)
[2017-07-23] MEDS: MYLICON PO PRN ×2 (03:51→12:08)
[2017-07-23] MEDS: PEPCID IV SCH ×3 (11:47→21:07)
[2017-07-23] MEDS: ZESTRIL PO SCH ×2 (11:48→20:07)
[2017-07-23] MEDS: NORMODYNE IV PRN (11:54)
--- NOTE | 2017-07-23 13:56 | Nuclear Medicine Report ---
NUCLEAR MEDICINE GASTRIC EMPTYING SCAN History: Intractable vomiting, nausea. Findings: Anterior abdominal scintigraphic images were obtained for 90 minutes following ingestion of 1 mCi of technetium 99m sulfur colloid in oatmeal. The images demonstrate very little if any gastric emptying over this timeframe. Half life for gastric emptying measures 3354 minutes. Impression: Severe gastroparesis.
[2017-07-23] MEDS: D5NS 1,000 ML IV SCH ×2 (14:25→23:48)
--- NOTE | 2017-07-23 14:25 | Progress Note ---
Assessment and Plan - Patient Problems (1) Gastroparesis Current Visit: Yes Status: Acute Plan to address problem: Reviewed emptying study. Definitely seems to fit with clinical picture. Would recommend GI consult for further evaluation and management. Time=20min Subjective Date of service: 07/23/17 Patient Reports: Positive: no new complaints Objective Vital Signs - 12hr 07/23/17 07/23/17 07:43 11:54 Temperature 98.2 F Pulse Rate 88 88 Respiratory 18 Rate Blood Pressure 174/109 174/109 O2 Sat by Pulse 94 Oximetry - General physical appearance well developed, well nourished, no distress, no pain - Respiratory normal expansion, normal respiratory effort - Abdomen soft, not tender, not guarding, not rigid - Integumentary no rash - Labs 07/21/17 06:00 07/22/17 08:26 - Imaging Additional Studies: Gastric Emptying study report and images reviewed.
--- NOTE | 2017-07-23 14:49 | Progress Note ---
<LOLITA BOUCHER - Last Filed: 07/23/17 14:43> Assessment and Plan Assessment and plan: 66 y/o AAF with no significant PMH comes last night for acute onset of abdominal pain associated with nausea and vomiting .Apparently she had a large meal and did not chew properly.Has been vomiting the food she has ingested.Had CT abdomen this am which showed vascular torsion .Her symptoms resolved while in ER by the time she was evaluated by surgery. Surgery feels that volvulus / vascular torsion resolved spontaneously, but she is still having n/v Acute intestinal volvulus -has now resolved Intractable N/V appears to be related to hydralazine administration -dc hydralazine, phernegan prn GI consulted Gastroparesis GI consulted REEDER now resolved, did not respond to fioricet, so will dc it HTN urgency optimize meds, avoid hydralazine Lactic acidosis: due to Acute abdomen, now resolved; not due to sepsis Hypokalemia KCL supplemented DVT prophylaxis on Lovenox History Interval history: Patient seen and examined today. She continues to complain of vomiting and is feeling slightly dizzy today. She denies chest pain, shortness of breath, nausea. Labs denies any notes reviewed. Hospitalist Physical - Constitutional Vitals: Temp Pulse Resp BP Pulse Ox 98.2 F 88 18 174/109 94 07/23/17 07:43 07/23/17 11:54 07/23/17 07:43 07/23/17 11:54 07/23/17 07:43 General appearance: Present: no acute distress, well-nourished - EENT Eyes: Present: PERRL, EOM intact ENT: hearing intact, clear oral mucosa - Neck Neck: Present: supple, normal ROM - Respiratory Respiratory effort: normal Respiratory: bilateral: CTA - Cardiovascular Rhythm: regular Heart Sounds: Present: S1 & S2 - Extremities Extremities: no ischemia, No edema - Abdominal General gastrointestinal: soft, non-tender, non-distended - Integumentary Integumentary: Present: clear, warm, dry - Psychiatric Psychiatric: appropriate mood/affect, cooperative - Neurologic Neurologic: CNII-XII intact, moves all extremities - Allied Health Allied health notes reviewed: nursing Results - Labs CBC & Chem 7: 07/21/17 06:00 07/22/17 08:26 Labs: Laboratory Last Values WBC 8.8 K/mm3 (4.5-11.0) 07/21/17 06:00 RBC 4.93 M/mm3 (3.65-5.03) 07/21/17 06:00 Hgb 14.1 gm/dl (10.1-14.3) 07/21/17 06:00 Hct 42.2 % (30.3-42.9) 07/21/17 06:00 MCV 86 fl (79-97) 07/21/17 06:00 MCH 29 pg (28-32) 07/21/17 06:00 MCHC 33 % (30-34) 07/21/17 06:00 RDW 14.3 % (13.2-15.2) 07/21/17 06:00 Plt Count 266 K/mm3 (140-440) 07/21/17 06:00 Lymph % (Auto) 9.9 % (13.4-35.0) L 07/21/17 06:00 [place] % (Auto) 5.1 % (0.0-7.3) 07/21/17 06:00 Eos % (Auto) 0.1 % (0.0-4.3) 07/21/17 06:00 Baso % (Auto) 0.5 % (0.0-1.8) 07/21/17 06:00 Lymph # 0.9 K/mm3 (1.2-5.4) L 07/21/17 06:00 Chambers # 0.5 K/mm3 (0.0-0.8) 07/21/17 06:00 Eos # 0.0 K/mm3 (0.0-0.4) 07/21/17 06:00 Baso # 0.0 K/mm3 (0.0-0.1) 07/21/17 06:00 Seg Neutrophils % 84.4 % (40.0-70.0) H 07/21/17 06:00 Seg Neutrophils # 7.4 K/mm3 (1.8-7.7) 07/21/17 06:00 Sodium 137 mmol/L (137-145) 07/22/17 08:26 Potassium 3.4 mmol/L (3.6-5.0) L 07/22/17 08:26 Chloride 100.8 mmol/L (98-107) 07/22/17 08:26 Carbon Dioxide 23 mmol/L (22-30) 07/22/17 08:26 Anion Gap 17 mmol/L 07/22/17 08:26 BUN 7 mg/dL (7-17) 07/22/17 08:26 Creatinine 0.6 mg/dL (0.7-1.2) L 07/22/17 08:26 Estimated GFR > 60 ml/min 07/22/17 08:26 BUN/Creatinine Ratio 12 % 07/22/17 08:26 Glucose 118 mg/dL (65-100) H 07/22/17 08:26 Hemoglobin A1c 5.3 % (4-6) 07/20/17 20:11 Lactic Acid 2.80 mmol/L (0.7-2.0) H* 07/20/17 08:25 Calcium 9.4 mg/dL (8.4-10.2) 07/22/17 08:26 Phosphorus 2.20 mg/dL (2.5-4.5) L 07/22/17 08:26 Magnesium 1.90 mg/dL (1.7-2.3) 07/22/17 08:26 Total Bilirubin 0.50 mg/dL (0.1-1.2) 07/21/17 06:00 AST 24 units/L (5-40) 07/21/17 06:00 ALT 19 units/L (7-56) 07/21/17 06:00 Alkaline Phosphatase 86 units/L (35-129) 07/21/17 06:00 Total Protein 7.2 g/dL (6.3-8.2) 07/21/17 06:00 Albumin 3.9 g/dL (3.9-5) 07/21/17 06:00 Albumin/Globulin Ratio 1.2 % 07/21/17 06:00 Lipase 18 units/L (13-60) 07/20/17 03:38 Urine Color Yellow (Yellow) 07/20/17 11:20 Urine Turbidity Clear (Clear) 07/20/17 11:20 Urine pH 6.0 (5.0-7.0) 07/20/17 11:20 Ur Specific [place] 1.041 (1.003-1.030) H 07/20/17 11:20 Urine Protein <15 mg/dl mg/dL (Negative) 07/20/17 11:20 Urine Glucose (UA) Neg mg/dL (Negative) 07/20/17 11:20 Urine Ketones Tr mg/dL (Negative) 07/20/17 11:20 Urine Blood Neg (Negative) 07/20/17 11:20 Urine Nitrite Neg (Negative) 07/20/17 11:20 Urine Bilirubin Neg (Negative) 07/20/17 11:20 Urine Urobilinogen < 2.0 mg/dL (<2.0) 07/20/17 11:20 Ur Leukocyte Esterase Tr (Negative) 07/20/17 11:20 Urine WBC (Auto) 6.0 /HPF (0.0-6.0) 07/20/17 11:20 Urine RBC (Auto) 1.0 /HPF (0.0-6.0) 07/20/17 11:20 U Epithel Cells (Auto) 1.0 /HPF (0-13.0) 07/20/17 11:20 Urine Bacteria (Auto) 1+ /HPF (Negative) 07/20/17 11:20 <KASEY CALVERT M - Last Filed: 07/30/17 00:02> Hospitalist Physical - Constitutional Vitals: Temp Pulse Resp BP Pulse Ox 98.8 F 85 20 138/77 95 07/29/17 07:29 07/29/17 10:54 07/29/17 07:29 07/29/17 10:56 07/29/17 07:29 Results - Labs CBC & Chem 7: 07/28/17 09:21 07/28/17 09:21 Labs: Laboratory Last Values WBC 4.2 K/mm3 (4.5-11.0) L 07/28/17 09:21 RBC 4.16 M/mm3 (3.65-5.03) 07/28/17 09:21 Hgb 11.8 gm/dl (10.1-14.3) 07/28/17 09:21 Hct 35.5 % (30.3-42.9) 07/28/17 09:21 MCV 85 fl (79-97) 07/28/17 09:21 MCH 28 pg (28-32) 07/28/17 09:21 MCHC 33 % (30-34) 07/28/17 09:21 RDW 14.1 % (13.2-15.2) 07/28/17 09:21 Plt Count 305 K/mm3 (140-440) 07/28/17 09:21 Lymph % (Auto) 25.4 % (13.4-35.0) 07/28/17 09:21 Chambers % (Auto) 9.6 % (0.0-7.3) H 07/28/17 09:21 Eos % (Auto) 3.3 % (0.0-4.3) 07/28/17 09:21 Baso % (Auto) 0.8 % (0.0-1.8) 07/28/17 09:21 Lymph # 1.1 K/mm3 (1.2-5.4) L 07/28/17 09:21 [place] # 0.4 K/mm3 (0.0-0.8) 07/28/17 09:21 Eos # 0.1 K/mm3 (0.0-0.4) 07/28/17 09:21 Baso # 0.0 K/mm3 (0.0-0.1) 07/28/17 09:21 Seg Neutrophils % 60.9 % (40.0-70.0) 07/28/17 09:21 Seg Neutrophils # 2.5 K/mm3 (1.8-7.7) 07/28/17 09:21 Sodium 142 mmol/L (137-145) 07/28/17 09:21 Potassium 3.5 mmol/L (3.6-5.0) L 07/28/17 09:21 Chloride 107.0 mmol/L (98-107) 07/28/17 09:21 Carbon Dioxide 20 mmol/L (22-30) L 07/28/17 09:21 Anion Gap 19 mmol/L 07/28/17 09:21 BUN 3 mg/dL (7-17) L 07/28/17 09:21 Creatinine 0.6 mg/dL (0.7-1.2) L 07/28/17 09:21 Estimated GFR > 60 ml/min 07/28/17 09:21 BUN/Creatinine Ratio 5 % 07/28/17 09:21 Glucose 96 mg/dL (65-100) 07/28/17 09:21 POC Glucose 98 (70-105) 07/28/17 21:23 Hemoglobin A1c 5.3 % (4-6) 07/20/17 20:11 Lactic Acid 2.80 mmol/L (0.7-2.0) H* 07/20/17 08:25 Calcium 9.3 mg/dL (8.4-10.2) 07/28/17 09:21 Phosphorus 2.30 mg/dL (2.5-4.5) L 07/28/17 09:21 Magnesium 2.00 mg/dL (1.7-2.3) 07/28/17 09:21 Total Bilirubin 0.50 mg/dL (0.1-1.2) 07/21/17 06:00 AST 24 units/L (5-40) 07/21/17 06:00 ALT 19 units/L (7-56) 07/21/17 06:00 Alkaline Phosphatase 86 units/L (35-129) 07/21/17 06:00 Total Protein 7.2 g/dL (6.3-8.2) 07/21/17 06:00 Albumin 3.9 g/dL (3.9-5) 07/21/17 06:00 Albumin/Globulin Ratio 1.2 % 07/21/17 06:00 Lipase 18 units/L (13-60) 07/20/17 03:38 Urine Color Yellow (Yellow) 07/20/17 11:20 Urine Turbidity Clear (Clear) 07/20/17 11:20 Urine pH 6.0 (5.0-7.0) 07/20/17 11:20 Ur Specific [place] 1.041 (1.003-1.030) H 07/20/17 11:20 Urine Protein <15 mg/dl mg/dL (Negative) 07/20/17 11:20 Urine Glucose (UA) Neg mg/dL (Negative) 07/20/17 11:20 Urine Ketones Tr mg/dL (Negative) 07/20/17 11:20 Urine Blood Neg (Negative) 07/20/17 11:20 Urine Nitrite Neg (Negative) 07/20/17 11:20 Urine Bilirubin Neg (Negative) 07/20/17 11:20 Urine Urobilinogen < 2.0 mg/dL (<2.0) 07/20/17 11:20 Ur Leukocyte Esterase Tr (Negative) 07/20/17 11:20 Urine WBC (Auto) 6.0 /HPF (0.0-6.0) 07/20/17 11:20 Urine RBC (Auto) 1.0 /HPF (0.0-6.0) 07/20/17 11:20 U Epithel Cells (Auto) 1.0 /HPF (0-13.0) 07/20/17 11:20 Urine Bacteria (Auto) 1+ /HPF (Negative) 07/20/17 11:20
[2017-07-23] MEDS: LOVENOX SUB-Q SCH ×2 (20:22→21:07)
[2017-07-23] MEDS: ATIVAN IV PRN (20:23)
[2017-07-23] MEDS: ZOFRAN IV PRN (20:23)
[2017-07-23] MEDS ORDERED: VASOTEC IV PRN (20:52)
[2017-07-24] MEDS: NORMODYNE IV PRN (05:38)
[2017-07-24 06:30] LABS: BUN/Creatinine Ratio 15; Blood Urea Nitrogen 9 mg/dL (7-17); Calcium 9.3 mg/dL (8.4-10.2); Hemolysis Index 6
[2017-07-24] MEDS: ZESTRIL PO SCH (10:19)
[2017-07-24] MEDS: PEPCID IV SCH ×2 (10:19→21:47)
[2017-07-24] MEDS ORDERED: APRESOLINE IV PRN (10:22)
[2017-07-24] MEDS ORDERED: K-DUR PO ONE (11:00)
--- NOTE | 2017-07-24 11:30 | Progress Note ---
Assessment and Plan - Patient Problems (1) Gastroparesis Current Visit: Yes Status: Acute Plan to address problem: Reviewed emptying study. Definitely seems to fit with clinical picture. Would recommend GI consult for further evaluation and management. Lethargy may be related to medicine given last night for insomnia. Time=15min Subjective Date of service: 07/24/17 Patient Reports: Positive: other (no pain now. Main issue is that she feels like she has excess air in her stomach. No headcahe now.). Negative: nausea Objective Vital Signs - 12hr 07/23/17 07/24/17 07/24/17 23:36 00:17 03:52 Temperature 98.1 F 99.4 F Pulse Rate 93 H 93 H 98 H Respiratory 16 16 Rate Blood Pressure 159/102 159/102 178/105 O2 Sat by Pulse 98 98 Oximetry 07/24/17 07/24/17 05:38 07:43 Temperature 99.0 F Pulse Rate 98 H 80 Respiratory 16 Rate Blood Pressure 178/105 161/102 O2 Sat by Pulse 94 Oximetry - General physical appearance no distress, other (appears lethargic) - Eyes normal occular movement - Respiratory normal expansion, normal respiratory effort - Abdomen soft, not tender, bowel sounds normal, not distended (abdominal size is unchanged), not guarding, not rigid - Integumentary no rash - Neurologic other (very lethargic) - Labs 07/21/17 06:00 07/24/17 05:40 Diabetes panel 07/24/17 Range/Units 05:40 Sodium 139 (137-145) mmol/L Potassium 3.2 L (3.6-5.0) mmol/L Chloride 102.3 (98-107) mmol/L Carbon Dioxide 24 (22-30) mmol/L BUN 9 (7-17) mg/dL Creatinine 0.6 L (0.7-1.2) mg/dL Glucose 125 H (65-100) mg/dL Calcium 9.3 (8.4-10.2) mg/dL Calcium panel 07/24/17 Range/Units 05:40 Calcium 9.3 (8.4-10.2) mg/dL Pituitary panel 07/24/17 Range/Units 05:40 Sodium 139 (137-145) mmol/L Potassium 3.2 L (3.6-5.0) mmol/L Chloride 102.3 (98-107) mmol/L Carbon Dioxide 24 (22-30) mmol/L BUN 9 (7-17) mg/dL Creatinine 0.6 L (0.7-1.2) mg/dL Glucose 125 H (65-100) mg/dL Calcium 9.3 (8.4-10.2) mg/dL Adrenal panel 07/24/17 Range/Units 05:40 Sodium 139 (137-145) mmol/L Potassium 3.2 L (3.6-5.0) mmol/L Chloride 102.3 (98-107) mmol/L Carbon Dioxide 24 (22-30) mmol/L BUN 9 (7-17) mg/dL Creatinine 0.6 L (0.7-1.2) mg/dL Glucose 125 H (65-100) mg/dL Calcium 9.3 (8.4-10.2) mg/dL - Imaging Additional Studies: reviewed gastric emptying study
--- NOTE | 2017-07-24 11:47 | Gastroenterology Consultation ---
History of Present Illness - Reason for Consult Consult date: 07/24/17 intractable N/V, gastroparesis Requesting physician: LOLITA BOUCHER - History of Present Illness Patient is a 66 y/o female with no significant PMH who presented to ED with c/o acute onset generalized abdominal pain with associated N/V. Abd CT showed vascular torsion and possible ischemic bowel. She was evaluated by surgery with no recommendations for surgical intervention due to pt's clinical improvement. Abd x-ray 07/21/17 was negative. GES yesterday showed severe gastroparesis. This morning pt was resting in bed drinking apple juice. She reports abd pain has resolved and reports no episodes of N/V today. However she clinically looks uncomfortable and admits to feeling bloated. Denies fever, wt loss, CP, SOB, dizziness, signs of bleeding or LGI symptoms such as diarrhea or constipation. Past History Past Medical History: No medical history Past Surgical History: hysterectomy (no complications) Social history: denies: smoking, alcohol abuse, IV drug use Family history: no significant family history Medications and Allergies Allergies Allergy/AdvReac Type Severity Reaction Status Date / Time No Known Allergies Allergy Unverified 07/20/17 03:27 Active Meds: Active Medications Bisacodyl (Dulcolax) 10 mg [place] QDAY PRN PRN Reason: Constipation unrelieved by MOM Enalaprilat (Vasotec) 1.25 mg IV Q6HR PRN PRN Reason: BP >160/100 Last Admin: 07/24/17 00:17 Dose: 1.25 mg Enoxaparin Sodium (Lovenox) 40 mg SUB-Q QDAY@2200 [facility] Last Admin: 07/23/17 21:07 Dose: Not Given Famotidine (Pepcid) 20 mg IV BID [facility] Last Admin: 07/24/17 10:19 Dose: 20 mg Hydralazine HCl (Apresoline) 20 mg IV Q4HR PRN PRN Reason: high B/P Dextrose/Sodium Chloride (D5ns) 1,000 mls @ 100 mls/hr IV DIRECT [facility] Last Admin: 07/23/17 23:48 Dose: 100 mls/hr Lisinopril (Zestril) 40 mg PO QDAY [facility] Last Admin: 07/24/17 10:19 Dose: 40 mg Lorazepam (Ativan) 1 mg IV Q8H PRN PRN Reason: Nausea Last Admin: 07/23/17 20:23 Dose: 1 mg Magnesium Hydroxide (Milk Of Magnesia) 30 ml PO Q4H PRN PRN Reason: Constipation Metoclopramide HCl (Reglan) 10 mg IV Q6H PRN PRN Reason: Nausea And Vomiting Morphine Sulfate (Morphine) 2 mg IV Q4H PRN PRN Reason: Pain, Moderate (4-6) Last Admin: 07/22/17 21:49 Dose: 2 mg Ondansetron HCl (Zofran) 4 mg IV Q3H PRN PRN Reason: N/V unrelieved by Reglan Last Admin: 07/23/17 20:23 Dose: 4 mg Oxycodone/Acetaminophen (Percocet 5/325) 1 tab PO Q6H PRN PRN Reason: Pain, Moderate (4-6) Last Admin: 07/20/17 22:27 Dose: 1 tab Promethazine HCl (Phenergan) 25 mg [place] Q6H PRN PRN Reason: Nausea And Vomiting Last Admin: 07/22/17 15:45 Dose: 25 mg Simethicone (Mylicon) 160 mg PO Q6H PRN PRN Reason: Gas pain Last Admin: 07/23/17 12:08 Dose: 160 mg Zolpidem Tartrate (Ambien) 5 mg PO QHS PRN PRN Reason: Insomnia Last Admin: 07/21/17 01:15 Dose: 5 mg Review of Systems - Review of Systems All systems: negative Gastrointestinal: abdominal pain, nausea, vomiting Exam - Constitutional Vital Signs: Temp Pulse Resp BP Pulse Ox 99.0 F 80 16 161/102 94 07/24/17 07:43 07/24/17 07:43 07/24/17 07:43 07/24/17 07:43 07/24/17 07:43 General appearance: no acute distress, other (ill appearing) - EENT Eyes: PERRL, EOM intact ENT: hearing intact - Respiratory Respiratory: bilateral: CTA - Cardiovascular Rhythm: regular Heart Sounds: Present: S1 & S2 - Gastrointestinal General gastrointestinal: Present: soft, non-tender, distended (slightly), normal bowel sounds - Labs CBC & Chem 7: 07/21/17 06:00 07/24/17 05:40 Lab Results: Laboratory Results - last 24 hr 07/24/17 05:40 Sodium 139 Potassium 3.2 L Chloride 102.3 Carbon Dioxide 24 Anion Gap 16 BUN 9 Creatinine 0.6 L Estimated GFR > 60 BUN/Creatinine Ratio 15 Glucose 125 H Calcium 9.3 Assessment and Plan 1.intractable N/V 2.abd pain 3.gastroparesis? -temp 99.0 -WBC-WNL -Abd CT on admission showed vascular torsion and possible ishcemic bowel -Abd x-ray 07/21/17- negative -GES yesterday showed severe gastroparesis -clinically pt reports her abd pain and N/V have improved but she feels bloated and looks ill appearing and uncomfortable -etiology- doubt acute onset gastroparesis -will order repeat Abd CT to check for resolution of vascular torsion -continue supportive care -will follow
--- NOTE | 2017-07-24 13:18 | Progress Note ---
<LOLITA BOUCHER - Last Filed: 07/24/17 13:13> Assessment and Plan Assessment and plan: 66 y/o AAF with no significant PMH comes last night for acute onset of abdominal pain associated with nausea and vomiting .Apparently she had a large meal and did not chew properly.Has been vomiting the food she has ingested.Had CT abdomen this am which showed vascular torsion .Her symptoms resolved while in ER by the time she was evaluated by surgery. Surgery feels that volvulus / vascular torsion resolved spontaneously, but she is still having n/v Acute intestinal volvulus -has now resolved Intractable N/V appears to be related to hydralazine administration -dc hydralazine, phernegan prn GI consulted, will order repeat Abd CT to check for resolution of vascular torsion Gastroparesis GI consulted REEDER now resolved, did not respond to fioricet, so will dc it HTN urgency optimize meds, avoid hydralazine Lactic acidosis: due to Acute abdomen, now resolved; not due to sepsis Hypokalemia KCL supplemented DVT prophylaxis on Lovenox History Interval history: Patient seen and examined today. She states that the vomiting has improved she only vomited once today. She denies chest pain, shortness of breath, nausea. Labs denies any notes reviewed. Hospitalist Physical - Constitutional Vitals: Temp Pulse Resp BP Pulse Ox 99.0 F 80 16 161/102 94 07/24/17 07:43 07/24/17 07:43 07/24/17 07:43 07/24/17 07:43 07/24/17 07:43 General appearance: Present: no acute distress, well-nourished - EENT Eyes: Present: PERRL, EOM intact ENT: hearing intact, clear oral mucosa - Neck Neck: Present: supple, normal ROM - Respiratory Respiratory effort: normal Respiratory: bilateral: CTA - Cardiovascular Rhythm: regular Heart Sounds: Present: S1 & S2 - Extremities Extremities: no ischemia, No edema - Abdominal General gastrointestinal: soft, non-tender, distended (mildly distended) - Integumentary Integumentary: Present: clear, warm, dry - Psychiatric Psychiatric: appropriate mood/affect, cooperative - Neurologic Neurologic: CNII-XII intact, moves all extremities - Allied Health Allied health notes reviewed: nursing Results - Labs CBC & Chem 7: 07/21/17 06:00 07/24/17 05:40 Labs: Laboratory Last Values WBC 8.8 K/mm3 (4.5-11.0) 07/21/17 06:00 RBC 4.93 M/mm3 (3.65-5.03) 07/21/17 06:00 Hgb 14.1 gm/dl (10.1-14.3) 07/21/17 06:00 Hct 42.2 % (30.3-42.9) 07/21/17 06:00 MCV 86 fl (79-97) 07/21/17 06:00 MCH 29 pg (28-32) 07/21/17 06:00 MCHC 33 % (30-34) 07/21/17 06:00 RDW 14.3 % (13.2-15.2) 07/21/17 06:00 Plt Count 266 K/mm3 (140-440) 07/21/17 06:00 Lymph % (Auto) 9.9 % (13.4-35.0) L 07/21/17 06:00 [place] % (Auto) 5.1 % (0.0-7.3) 07/21/17 06:00 Eos % (Auto) 0.1 % (0.0-4.3) 07/21/17 06:00 Baso % (Auto) 0.5 % (0.0-1.8) 07/21/17 06:00 Lymph # 0.9 K/mm3 (1.2-5.4) L 07/21/17 06:00 [place] # 0.5 K/mm3 (0.0-0.8) 07/21/17 06:00 Eos # 0.0 K/mm3 (0.0-0.4) 07/21/17 06:00 Baso # 0.0 K/mm3 (0.0-0.1) 07/21/17 06:00 Seg Neutrophils % 84.4 % (40.0-70.0) H 07/21/17 06:00 Seg Neutrophils # 7.4 K/mm3 (1.8-7.7) 07/21/17 06:00 Sodium 139 mmol/L (137-145) 07/24/17 05:40 Potassium 3.2 mmol/L (3.6-5.0) L 07/24/17 05:40 Chloride 102.3 mmol/L (98-107) 07/24/17 05:40 Carbon Dioxide 24 mmol/L (22-30) 07/24/17 05:40 Anion Gap 16 mmol/L 07/24/17 05:40 BUN 9 mg/dL (7-17) 07/24/17 05:40 Creatinine 0.6 mg/dL (0.7-1.2) L 07/24/17 05:40 Estimated GFR > 60 ml/min 07/24/17 05:40 BUN/Creatinine Ratio 15 % 07/24/17 05:40 Glucose 125 mg/dL (65-100) H 07/24/17 05:40 Hemoglobin A1c 5.3 % (4-6) 07/20/17 20:11 Lactic Acid 2.80 mmol/L (0.7-2.0) H* 07/20/17 08:25 Calcium 9.3 mg/dL (8.4-10.2) 07/24/17 05:40 Phosphorus 2.20 mg/dL (2.5-4.5) L 07/22/17 08:26 Magnesium 1.90 mg/dL (1.7-2.3) 07/22/17 08:26 Total Bilirubin 0.50 mg/dL (0.1-1.2) 07/21/17 06:00 AST 24 units/L (5-40) 07/21/17 06:00 ALT 19 units/L (7-56) 07/21/17 06:00 Alkaline Phosphatase 86 units/L (35-129) 07/21/17 06:00 Total Protein 7.2 g/dL (6.3-8.2) 07/21/17 06:00 Albumin 3.9 g/dL (3.9-5) 07/21/17 06:00 Albumin/Globulin Ratio 1.2 % 07/21/17 06:00 Lipase 18 units/L (13-60) 07/20/17 03:38 Urine Color Yellow (Yellow) 07/20/17 11:20 Urine Turbidity Clear (Clear) 07/20/17 11:20 Urine pH 6.0 (5.0-7.0) 07/20/17 11:20 Ur Specific [place] 1.041 (1.003-1.030) H 07/20/17 11:20 Urine Protein <15 mg/dl mg/dL (Negative) 07/20/17 11:20 Urine Glucose (UA) Neg mg/dL (Negative) 07/20/17 11:20 Urine Ketones Tr mg/dL (Negative) 07/20/17 11:20 Urine Blood Neg (Negative) 07/20/17 11:20 Urine Nitrite Neg (Negative) 07/20/17 11:20 Urine Bilirubin Neg (Negative) 07/20/17 11:20 Urine Urobilinogen < 2.0 mg/dL (<2.0) 07/20/17 11:20 Ur Leukocyte Esterase Tr (Negative) 07/20/17 11:20 Urine WBC (Auto) 6.0 /HPF (0.0-6.0) 07/20/17 11:20 Urine RBC (Auto) 1.0 /HPF (0.0-6.0) 07/20/17 11:20 U Epithel Cells (Auto) 1.0 /HPF (0-13.0) 07/20/17 11:20 Urine Bacteria (Auto) 1+ /HPF (Negative) 07/20/17 11:20 <SOFY ALLISON - Last Filed: 07/24/17 16:29> History Interval history: I saw and evaluated the patient. I agree with the findings and the plan of care as documented in the Nurse Practitioner's~note, with the following corrections and additions. Patient seen and evaluated, medical records reviewed Patient is slightly better Agree with the per documentation and treatment plan Consults and recommendations noted and appreciated Plan of care reviewed with the patient and her nurse Hospitalist Physical - Constitutional Vitals: Temp Pulse Resp BP Pulse Ox 99.0 F 92 H 16 179/115 94 07/24/17 07:43 07/24/17 15:46 07/24/17 07:43 07/24/17 15:46 07/24/17 07:43 Results - Labs CBC & Chem 7: 07/21/17 06:00 07/24/17 05:40 Labs: Laboratory Last Values WBC 8.8 K/mm3 (4.5-11.0) 07/21/17 06:00 RBC 4.93 M/mm3 (3.65-5.03) 07/21/17 06:00 Hgb 14.1 gm/dl (10.1-14.3) 07/21/17 06:00 Hct 42.2 % (30.3-42.9) 07/21/17 06:00 MCV 86 fl (79-97) 07/21/17 06:00 MCH 29 pg (28-32) 07/21/17 06:00 MCHC 33 % (30-34) 07/21/17 06:00 RDW 14.3 % (13.2-15.2) 07/21/17 06:00 Plt Count 266 K/mm3 (140-440) 07/21/17 06:00 Lymph % (Auto) 9.9 % (13.4-35.0) L 07/21/17 06:00 [place] % (Auto) 5.1 % (0.0-7.3) 07/21/17 06:00 Eos % (Auto) 0.1 % (0.0-4.3) 07/21/17 06:00 Baso % (Auto) 0.5 % (0.0-1.8) 07/21/17 06:00 Lymph # 0.9 K/mm3 (1.2-5.4) L 07/21/17 06:00 [place] # 0.5 K/mm3 (0.0-0.8) 07/21/17 06:00 Eos # 0.0 K/mm3 (0.0-0.4) 07/21/17 06:00 Baso # 0.0 K/mm3 (0.0-0.1) 07/21/17 06:00 Seg Neutrophils % 84.4 % (40.0-70.0) H 07/21/17 06:00 Seg Neutrophils # 7.4 K/mm3 (1.8-7.7) 07/21/17 06:00 Sodium 139 mmol/L (137-145) 07/24/17 05:40 Potassium 3.2 mmol/L (3.6-5.0) L 07/24/17 05:40 Chloride 102.3 mmol/L (98-107) 07/24/17 05:40 Carbon Dioxide 24 mmol/L (22-30) 07/24/17 05:40 Anion Gap 16 mmol/L 07/24/17 05:40 BUN 9 mg/dL (7-17) 07/24/17 05:40 Creatinine 0.6 mg/dL (0.7-1.2) L 07/24/17 05:40 Estimated GFR > 60 ml/min 07/24/17 05:40 BUN/Creatinine Ratio 15 % 07/24/17 05:40 Glucose 125 mg/dL (65-100) H 07/24/17 05:40 Hemoglobin A1c 5.3 % (4-6) 07/20/17 20:11 Lactic Acid 2.80 mmol/L (0.7-2.0) H* 07/20/17 08:25 Calcium 9.3 mg/dL (8.4-10.2) 07/24/17 05:40 Phosphorus 2.20 mg/dL (2.5-4.5) L 07/22/17 08:26 Magnesium 1.90 mg/dL (1.7-2.3) 07/22/17 08:26 Total Bilirubin 0.50 mg/dL (0.1-1.2) 07/21/17 06:00 AST 24 units/L (5-40) 07/21/17 06:00 ALT 19 units/L (7-56) 07/21/17 06:00 Alkaline Phosphatase 86 units/L (35-129) 07/21/17 06:00 Total Protein 7.2 g/dL (6.3-8.2) 07/21/17 06:00 Albumin 3.9 g/dL (3.9-5) 07/21/17 06:00 Albumin/Globulin Ratio 1.2 % 07/21/17 06:00 Lipase 18 units/L (13-60) 07/20/17 03:38 Urine Color Yellow (Yellow) 07/20/17 11:20 Urine Turbidity Clear (Clear) 07/20/17 11:20 Urine pH 6.0 (5.0-7.0) 07/20/17 11:20 Ur Specific [place] 1.041 (1.003-1.030) H 07/20/17 11:20 Urine Protein <15 mg/dl mg/dL (Negative) 07/20/17 11:20 Urine Glucose (UA) Neg mg/dL (Negative) 07/20/17 11:20 Urine Ketones Tr mg/dL (Negative) 07/20/17 11:20 Urine Blood Neg (Negative) 07/20/17 11:20 Urine Nitrite Neg (Negative) 07/20/17 11:20 Urine Bilirubin Neg (Negative) 07/20/17 11:20 Urine Urobilinogen < 2.0 mg/dL (<2.0) 07/20/17 11:20 Ur Leukocyte Esterase Tr (Negative) 07/20/17 11:20 Urine WBC (Auto) 6.0 /HPF (0.0-6.0) 07/20/17 11:20 Urine RBC (Auto) 1.0 /HPF (0.0-6.0) 07/20/17 11:20 U Epithel Cells (Auto) 1.0 /HPF (0-13.0) 07/20/17 11:20 Urine Bacteria (Auto) 1+ /HPF (Negative) 07/20/17 11:20
[2017-07-24] MEDS ORDERED: NACL ONE (16:02)
--- NOTE | 2017-07-24 16:58 | Cat Scan Report ---
FINAL REPORT EXAM: CT ABDOMEN PELVIS W CON HISTORY: abd pain TECHNIQUE: CT examination of the ABDOMEN after IV contrast CT examination of the PELVIS after IV contrast PRIORS: 07/20/2017 FINDINGS: Small bilateral pleural effusions. Adjacent posterior inferior lower lobe consolidation likely reflects compression atelectasis. Differential includes small foci of pneumonia. Slight fluid tracks in the right major fissure. Small cysts again noted in central liver. Normal-appearing gallbladder, adrenals, pancreas, and spleen. Intact normal caliber abdominal aorta and IVC. No retroperitoneal adenopathy. No mesenteric mass. Small left renal lower pole cyst unchanged. Otherwise normal-appearing kidneys and ureters. Very small fat containing umbilical hernia. Small fat containing left inguinal hernia. Slightly distended stomach. Moderately distended duodenum. Moderate distention of multiple small bowel loops in the abdomen and pelvis. Source of distention not definite on these images. Normal caliber distal and terminal ileum. Distended small bowel loops contain fluid and gas with fluid levels. Slight pelvic free fluid may be reactive. Slight fluid also in both pericolic gutters. Normal-appearing urinary bladder and rectum. Uterus not visible. No adnexal abnormality. Normal sigmoid colon. No gross ascites or free air. Normal-appearing cecum, terminal ileum, and appendix. IMPRESSION: Findings again suspicious for small bowel obstruction. Degree of small-bowel distention is more prominent than comparison. Although source and location of obstruction is not readily evident on these images, the distal and terminal ileum caliber are normal. Small bilateral pleural effusion with adjacent atelectasis and/or pneumonia Slight free fluid in the abdomen and pelvis may be reactive 07/24/2017 at 4:51 p.m. EST: I discussed the findings over the phone with MATILDE Ponce. They report knowledge of these findings and that an NG tube has just been placed
[2017-07-24] MEDS: MORPHINE IV PRN (17:59)
[2017-07-24] MEDS: ZOFRAN IV PRN (17:59)
--- NOTE | 2017-07-24 18:00 | Event Note ---
Date: 07/24/[address] scan as soon as it was done. I spoke with Dr. Silverio from radiology and went over the films in detail. He confirmed that he saw no evidence of any bowel compromise or ischemia. He saw no evidence of any vascular torsion. However, the bowel was more dilated than the last CT on July 20. The transition point was probably somewhere in the distal jejunum. The daughter had just come to the patient's room. Therefore, I explained everything to the patient and the daughter. I examined the patient again. The patient confirmed she had no abdominal pain, just pressure. On exam she had no signs of any tenderness or peritonitis. Therefore, I recommended that we place an NG tube. The plan would be, assuming she remained stable, to decompress the abdomen for the next 48 hours. If she improves, then will continue with conservative management. If she does not, then we will plan for exploratory surgery. I asked the nurse to place the NG tube immediately and they did successfully. I spoke with Drs. Ng and Hortencia. Both were in agreement with the plan. The daughter was appreciative of the care and the time. time=60min
[2017-07-24] MEDS: LOVENOX SUB-Q SCH (21:47)
[2017-07-24] MEDS: ATIVAN IV PRN (21:48)
[2017-07-24] MEDS: CATAPRES PO SCH (22:29)
[2017-07-25] MEDS: MORPHINE IV PRN (05:08)
[2017-07-25 05:24] LABS: Basophils % (Auto) 0.9 % (0.0-1.8); Eosinophils # (Auto) 0.1 K/mm3 (0.0-0.4); Eosinophils % (Auto) 2.3 % (0.0-4.3); Hematocrit 36.5 % (30.3-42.9); Hemoglobin 11.9 gm/dl (10.1-14.3); Lymphocytes # (Auto) 1.5 K/mm3 (1.2-5.4); Lymphocytes % (Auto) 28.9 % (13.4-35.0); Mean Corpuscular HGB Conc 33 % (30-34); Mean Corpuscular Hemoglobin 28 pg (28-32); Mean Corpuscular Volume 86 fl (79-97); Monocytes # (Auto) 0.5 K/mm3 (0.0-0.8); Monocytes % (Auto) 8.9 % (0.0-7.3); Platelet Count 239 K/mm3 (140-440); Red Blood Count 4.23 M/mm3 (3.65-5.03); Red Cell Distribution Width 13.9 % (13.2-15.2)
[2017-07-25 05:40] LABS: BUN/Creatinine Ratio 13; Blood Urea Nitrogen 9 mg/dL (7-17); Calcium 9.1 mg/dL (8.4-10.2); Hemolysis Index 9
--- NOTE | 2017-07-25 09:01 | XRay Report ---
ABDOMEN RADIOGRAPHS INDICATION: Bowel obstruction. COMPARISON: 07/21/2017 radiograph and 07/24/2017 CT. FINDINGS: Frontal abdominal radiographs now demonstrate a dilated, 4.5 cm caliber small bowel loop in the left mid to lower abdomen. Nonobstructive imaged colon. No definite focal suspicious calcification, pneumatosis or significant pneumoperitoneum. New esophagogastric tube looped in the stomach with its tip in the proximal stomach, directed toward the GE junction and may be repositioned, if so appropriate. Urinary bladder contrast opacification. Mild bibasilar atelectasis/pleural fluid. EKG leads. Lower lumbar degenerative changes. CONCLUSION: Small bowel obstruction and various other findings, as above. Thank you for the opportunity to participate in this patient's care.
[2017-07-25] MEDS: PEPCID IV SCH ×2 (10:00→21:35)
[2017-07-25] MEDS: CATAPRES PO SCH (10:00)
[2017-07-25] MEDS: ZESTRIL PO SCH (10:00)
--- NOTE | 2017-07-25 10:59 | Progress Note ---
Assessment and Plan - Patient Problems (1) Small bowel obstruction Current Visit: Yes Status: Acute Plan to address problem: Pt stable. Appears much better clinically and radiographically today. rec: 1) Cont NGt decompression 2) OOB to chair BID/TID. ok to disconnect from suction for ambulation in hallway time=15min Subjective Patient Reports: Positive: feels better, no flatus, no bowel movement, other ( no pain now. ). Negative: nausea, vomiting Objective Vital Signs - 12hr 07/24/17 07/25/17 07/25/17 23:31 03:41 05:08 Temperature 98.9 F 99.2 F Pulse Rate 87 95 H Respiratory 16 14 20 Rate Blood Pressure 112/77 146/90 O2 Sat by Pulse 95 96 Oximetry 07/25/17 08:17 Temperature 99.0 F Pulse Rate 70 Respiratory 18 Rate Blood Pressure 152/91 O2 Sat by Pulse 95 Oximetry - General physical appearance well developed, well nourished, no distress, no pain, other (looks better today. More awake and more comfortable) - Eyes normal occular movement - Respiratory normal expansion, normal respiratory effort - Abdomen soft, not tender, bowel sounds hypoactive (high pitched, fluid filled sounds), distended (much less), not guarding, not rigid, wound, other (NGT with bilious drainage. ) - Integumentary no rash - Neurologic normal coordination, normal sensation - Psychiatric oriented to time, oriented to person, oriented to place, speech is normal, memory intact - Labs 07/25/17 05:06 07/25/17 05:06 Diabetes panel 07/25/17 Range/Units 05:06 Sodium 141 (137-145) mmol/L Potassium 3.4 L (3.6-5.0) mmol/L Chloride 104.5 (98-107) mmol/L Carbon Dioxide 22 (22-30) mmol/L BUN 9 (7-17) mg/dL Creatinine 0.7 (0.7-1.2) mg/dL Glucose 118 H (65-100) mg/dL Calcium 9.1 (8.4-10.2) mg/dL Calcium panel 07/25/17 Range/Units 05:06 Calcium 9.1 (8.4-10.2) mg/dL Pituitary panel 07/25/17 Range/Units 05:06 Sodium 141 (137-145) mmol/L Potassium 3.4 L (3.6-5.0) mmol/L Chloride 104.5 (98-107) mmol/L Carbon Dioxide 22 (22-30) mmol/L BUN 9 (7-17) mg/dL Creatinine 0.7 (0.7-1.2) mg/dL Glucose 118 H (65-100) mg/dL Calcium 9.1 (8.4-10.2) mg/dL Adrenal panel 07/25/17 Range/Units 05:06 Sodium 141 (137-145) mmol/L Potassium 3.4 L (3.6-5.0) mmol/L Chloride 104.5 (98-107) mmol/L Carbon Dioxide 22 (22-30) mmol/L BUN 9 (7-17) mg/dL Creatinine 0.7 (0.7-1.2) mg/dL Glucose 118 H (65-100) mg/dL Calcium 9.1 (8.4-10.2) mg/dL
--- NOTE | 2017-07-25 11:29 | Progress Note ---
<LOLITA BOUCHER - Last Filed: 07/25/17 11:23> Assessment and Plan Assessment and plan: 66 y/o AAF with no significant PMH comes last night for acute onset of abdominal pain associated with nausea and vomiting .Apparently she had a large meal and did not chew properly.Has been vomiting the food she has ingested.Had CT abdomen this am which showed vascular torsion .Her symptoms resolved while in ER by the time she was evaluated by surgery. Surgery feels that volvulus / vascular torsion resolved spontaneously, but she is still having n/v Acute intestinal volvulus -has now resolved Intractable N/V appears to be related to hydralazine administration -dc hydralazine, phernegan prn GI following, abdominal x-ray showed small bowel obstruction, NG tube placed yesterday for decompression will continue Gastroparesis Appears to be chronic, GI following REEDER now resolved, did not respond to fioricet, so will dc it HTN urgency optimize meds, avoid hydralazine Lactic acidosis: due to Acute abdomen, now resolved; not due to sepsis Hypokalemia KCL supplemented DVT prophylaxis on Lovenox History Interval history: Patient seen and examined today. She states that the vomiting continues to improve, she's mostly just spitting up now. She denies chest pain, shortness of breath, nausea. Labs denies any notes reviewed. Hospitalist Physical - Constitutional Vitals: Temp Pulse Resp BP Pulse Ox 99.0 F 70 18 152/91 95 07/25/17 08:17 07/25/17 08:17 07/25/17 08:17 07/25/17 08:17 07/25/17 08:17 General appearance: Present: no acute distress, well-nourished - EENT Eyes: Present: PERRL, EOM intact ENT: hearing intact, clear oral mucosa - Neck Neck: Present: supple, normal ROM - Respiratory Respiratory effort: normal Respiratory: bilateral: CTA - Cardiovascular Rhythm: regular Heart Sounds: Present: S1 & S2 - Extremities Extremities: no ischemia, No edema - Abdominal General gastrointestinal: soft, non-tender, distended, other (NGT with bilious drainage) - Integumentary Integumentary: Present: clear, warm, dry - Psychiatric Psychiatric: appropriate mood/affect, cooperative - Neurologic Neurologic: CNII-XII intact, moves all extremities - Allied Health Allied health notes reviewed: nursing Results - Labs CBC & Chem 7: 07/25/17 05:06 07/25/17 05:06 Labs: Laboratory Last Values WBC 5.3 K/mm3 (4.5-11.0) 07/25/17 05:06 RBC 4.23 M/mm3 (3.65-5.03) 07/25/17 05:06 Hgb 11.9 gm/dl (10.1-14.3) 07/25/17 05:06 Hct 36.5 % (30.3-42.9) 07/25/17 05:06 MCV 86 fl (79-97) 07/25/17 05:06 MCH 28 pg (28-32) 07/25/17 05:06 MCHC 33 % (30-34) 07/25/17 05:06 RDW 13.9 % (13.2-15.2) 07/25/17 05:06 Plt Count 239 K/mm3 (140-440) 07/25/17 05:06 Lymph % (Auto) 28.9 % (13.4-35.0) 07/25/17 05:06 [place] % (Auto) 8.9 % (0.0-7.3) H 07/25/17 05:06 Eos % (Auto) 2.3 % (0.0-4.3) 07/25/17 05:06 Baso % (Auto) 0.9 % (0.0-1.8) 07/25/17 05:06 Lymph # 1.5 K/mm3 (1.2-5.4) 07/25/17 05:06 [place] # 0.5 K/mm3 (0.0-0.8) 07/25/17 05:06 Eos # 0.1 K/mm3 (0.0-0.4) 07/25/17 05:06 Baso # 0.0 K/mm3 (0.0-0.1) 07/25/17 05:06 Seg Neutrophils % 59.0 % (40.0-70.0) 07/25/17 05:06 Seg Neutrophils # 3.1 K/mm3 (1.8-7.7) 07/25/17 05:06 Sodium 141 mmol/L (137-145) 07/25/17 05:06 Potassium 3.4 mmol/L (3.6-5.0) L 07/25/17 05:06 Chloride 104.5 mmol/L (98-107) 07/25/17 05:06 Carbon Dioxide 22 mmol/L (22-30) 07/25/17 05:06 Anion Gap 18 mmol/L 07/25/17 05:06 BUN 9 mg/dL (7-17) 07/25/17 05:06 Creatinine 0.7 mg/dL (0.7-1.2) 07/25/17 05:06 Estimated GFR > 60 ml/min 07/25/17 05:06 BUN/Creatinine Ratio 13 % 07/25/17 05:06 Glucose 118 mg/dL (65-100) H 07/25/17 05:06 Hemoglobin A1c 5.3 % (4-6) 07/20/17 20:11 Lactic Acid 2.80 mmol/L (0.7-2.0) H* 07/20/17 08:25 Calcium 9.1 mg/dL (8.4-10.2) 07/25/17 05:06 Phosphorus 2.20 mg/dL (2.5-4.5) L 07/22/17 08:26 Magnesium 2.00 mg/dL (1.7-2.3) 07/25/17 05:06 Total Bilirubin 0.50 mg/dL (0.1-1.2) 07/21/17 06:00 AST 24 units/L (5-40) 07/21/17 06:00 ALT 19 units/L (7-56) 07/21/17 06:00 Alkaline Phosphatase 86 units/L (35-129) 07/21/17 06:00 Total Protein 7.2 g/dL (6.3-8.2) 07/21/17 06:00 Albumin 3.9 g/dL (3.9-5) 07/21/17 06:00 Albumin/Globulin Ratio 1.2 % 07/21/17 06:00 Lipase 18 units/L (13-60) 07/20/17 03:38 Urine Color Yellow (Yellow) 07/20/17 11:20 Urine Turbidity Clear (Clear) 07/20/17 11:20 Urine pH 6.0 (5.0-7.0) 07/20/17 11:20 Ur Specific [place] 1.041 (1.003-1.030) H 07/20/17 11:20 Urine Protein <15 mg/dl mg/dL (Negative) 07/20/17 11:20 Urine Glucose (UA) Neg mg/dL (Negative) 07/20/17 11:20 Urine Ketones Tr mg/dL (Negative) 07/20/17 11:20 Urine Blood Neg (Negative) 07/20/17 11:20 Urine Nitrite Neg (Negative) 07/20/17 11:20 Urine Bilirubin Neg (Negative) 07/20/17 11:20 Urine Urobilinogen < 2.0 mg/dL (<2.0) 07/20/17 11:20 Ur Leukocyte Esterase Tr (Negative) 07/20/17 11:20 Urine WBC (Auto) 6.0 /HPF (0.0-6.0) 07/20/17 11:20 Urine RBC (Auto) 1.0 /HPF (0.0-6.0) 07/20/17 11:20 U Epithel Cells (Auto) 1.0 /HPF (0-13.0) 07/20/17 11:20 Urine Bacteria (Auto) 1+ /HPF (Negative) 07/20/17 11:20 <SOFY ALLISON - Last Filed: 07/25/17 19:59> History Interval history: I saw and evaluated the patient. I agree with the findings and the plan of care as documented in the Nurse Practitioner's~note, with the following corrections and additions. Patient has small bowel obstruction on abdominal x-ray this morning Surgery recommended nothing by mouth status and intermittent NG suction Continue current management Hospitalist Physical - Constitutional Vitals: Temp Pulse Resp BP Pulse Ox 99.3 F 79 22 170/104 94 07/25/17 15:46 07/25/17 11:46 07/25/17 15:46 07/25/17 18:07 07/25/17 11:46 Results - Labs CBC & Chem 7: 07/25/17 05:06 07/25/17 05:06 Labs: Laboratory Last Values WBC 5.3 K/mm3 (4.5-11.0) 07/25/17 05:06 RBC 4.23 M/mm3 (3.65-5.03) 07/25/17 05:06 Hgb 11.9 gm/dl (10.1-14.3) 07/25/17 05:06 Hct 36.5 % (30.3-42.9) 07/25/17 05:06 MCV 86 fl (79-97) 07/25/17 05:06 MCH 28 pg (28-32) 07/25/17 05:06 MCHC 33 % (30-34) 07/25/17 05:06 RDW 13.9 % (13.2-15.2) 07/25/17 05:06 Plt Count 239 K/mm3 (140-440) 07/25/17 05:06 Lymph % (Auto) 28.9 % (13.4-35.0) 07/25/17 05:06 [place] % (Auto) 8.9 % (0.0-7.3) H 07/25/17 05:06 Eos % (Auto) 2.3 % (0.0-4.3) 07/25/17 05:06 Baso % (Auto) 0.9 % (0.0-1.8) 07/25/17 05:06 Lymph # 1.5 K/mm3 (1.2-5.4) 07/25/17 05:06 [place] # 0.5 K/mm3 (0.0-0.8) 07/25/17 05:06 Eos # 0.1 K/mm3 (0.0-0.4) 07/25/17 05:06 Baso # 0.0 K/mm3 (0.0-0.1) 07/25/17 05:06 Seg Neutrophils % 59.0 % (40.0-70.0) 07/25/17 05:06 Seg Neutrophils # 3.1 K/mm3 (1.8-7.7) 07/25/17 05:06 Sodium 141 mmol/L (137-145) 07/25/17 05:06 Potassium 3.4 mmol/L (3.6-5.0) L 07/25/17 05:06 Chloride 104.5 mmol/L (98-107) 07/25/17 05:06 Carbon Dioxide 22 mmol/L (22-30) 07/25/17 05:06 Anion Gap 18 mmol/L 07/25/17 05:06 BUN 9 mg/dL (7-17) 07/25/17 05:06 Creatinine 0.7 mg/dL (0.7-1.2) 07/25/17 05:06 Estimated GFR > 60 ml/min 07/25/17 05:06 BUN/Creatinine Ratio 13 % 07/25/17 05:06 Glucose 118 mg/dL (65-100) H 07/25/17 05:06 Hemoglobin A1c 5.3 % (4-6) 07/20/17 20:11 Lactic Acid 2.80 mmol/L (0.7-2.0) H* 07/20/17 08:25 Calcium 9.1 mg/dL (8.4-10.2) 07/25/17 05:06 Phosphorus 2.20 mg/dL (2.5-4.5) L 07/22/17 08:26 Magnesium 2.00 mg/dL (1.7-2.3) 07/25/17 05:06 Total Bilirubin 0.50 mg/dL (0.1-1.2) 07/21/17 06:00 AST 24 units/L (5-40) 07/21/17 06:00 ALT 19 units/L (7-56) 07/21/17 06:00 Alkaline Phosphatase 86 units/L (35-129) 07/21/17 06:00 Total Protein 7.2 g/dL (6.3-8.2) 07/21/17 06:00 Albumin 3.9 g/dL (3.9-5) 07/21/17 06:00 Albumin/Globulin Ratio 1.2 % 07/21/17 06:00 Lipase 18 units/L (13-60) 07/20/17 03:38 Urine Color Yellow (Yellow) 07/20/17 11:20 Urine Turbidity Clear (Clear) 07/20/17 11:20 Urine pH 6.0 (5.0-7.0) 07/20/17 11:20 Ur Specific [place] 1.041 (1.003-1.030) H 07/20/17 11:20 Urine Protein <15 mg/dl mg/dL (Negative) 07/20/17 11:20 Urine Glucose (UA) Neg mg/dL (Negative) 07/20/17 11:20 Urine Ketones Tr mg/dL (Negative) 07/20/17 11:20 Urine Blood Neg (Negative) 07/20/17 11:20 Urine Nitrite Neg (Negative) 07/20/17 11:20 Urine Bilirubin Neg (Negative) 07/20/17 11:20 Urine Urobilinogen < 2.0 mg/dL (<2.0) 07/20/17 11:20 Ur Leukocyte Esterase Tr (Negative) 07/20/17 11:20 Urine WBC (Auto) 6.0 /HPF (0.0-6.0) 07/20/17 11:20 Urine RBC (Auto) 1.0 /HPF (0.0-6.0) 07/20/17 11:20 U Epithel Cells (Auto) 1.0 /HPF (0-13.0) 07/20/17 11:20 Urine Bacteria (Auto) 1+ /HPF (Negative) 07/20/17 11:20
[2017-07-25] MEDS ORDERED: KCL 10MEQ/100ML 10 MEQ/100 ML BAG IV SCH (12:00)
[2017-07-25] MEDS ORDERED: K-DUR PO ONE (12:00)
[2017-07-25] MEDS ORDERED: KCL 40 MEQ in NACL 0.9% 500 ML 500 ML IV ONE (13:00)
[2017-07-25] MEDS ORDERED: APRESOLINE IV SCH (18:00)
[2017-07-25] MEDS: APRESOLINE IV SCH (18:07)
[2017-07-25] MEDS: D5NS 1,000 ML IV SCH (19:24)
[2017-07-25] MEDS: LOVENOX SUB-Q SCH (21:35)
[2017-07-25] MEDS: ATIVAN IV PRN (21:35)
[2017-07-26] MEDS: CATAPRES PO SCH ×3 (01:35→21:37)
[2017-07-26] MEDS: APRESOLINE IV SCH ×3 (03:18→18:58)
--- NOTE | 2017-07-26 10:33 | Progress Note ---
Assessment and Plan - Patient Problems (1) Small bowel obstruction Current Visit: Yes Status: Acute Plan to address problem: Pt stable. Almost appears back to normal. Would advance diet very slowly as I'm concerned that not enough time has passed to allow for complete resolution of obstruction. ok for sips today. Leave NGT out unless patient becomes symptomatic. rec: 1) Leave NGT out 2) sips of clears only today. Explained in great detail to patient. 3) Ambulate. 4) Abd XR today time=20min Subjective Date of service: 07/26/17 Patient Reports: Positive: no new complaints, feels better, flatus, bowel movement, other (Pt reports that NGT came out yesterday morning. No problems since then. Feels better than yesterday. Has had 4 BMs. Tolerated small amount of broth today. No symptoms now. ). Negative: nausea, vomiting Objective Vital Signs - 12hr 07/26/17 07/26/17 07/26/17 01:35 03:18 09:00 Pulse Rate 100 H 76 Respiratory 18 Rate Blood Pressure 160/102 106/62 - General physical appearance well developed, well nourished, no distress, no pain, other (Sitting up at edge of bed. Looks great!) - Eyes normal occular movement - Respiratory normal expansion, normal respiratory effort - Abdomen soft, bowel sounds hypoactive (but no high pitched or fluid filled sounds. ), not distended, not guarding, not rigid - Psychiatric oriented to time, oriented to person, oriented to place, speech is normal, memory intact - Labs 07/25/17 05:06 07/25/17 05:06
[2017-07-26 10:40] LABS: BUN/Creatinine Ratio 13; Blood Urea Nitrogen 9 mg/dL (7-17); Calcium 9.3 mg/dL (8.4-10.2); Hemolysis Index 62
[2017-07-26] MEDS: ZESTRIL PO SCH (13:02)
[2017-07-26] MEDS: PEPCID IV SCH ×2 (13:04→21:34)
--- NOTE | 2017-07-26 14:06 | XRay Report ---
ABDOMEN, 2 views: History: Reassess small bowel obstruction. Mild improvement in small bowel dilatation is demonstrated since 07/25/17. There is normal gas in the colon. Residual oral contrast is noted in the distal small bowel. There is no evidence for free air. Mild bibasilar atelectatic changes are noted in the lower lung zones. IMPRESSION: Mild improvement in the small bowel obstruction pattern since yesterday's exam.
--- NOTE | 2017-07-26 14:23 | Progress Note ---
<LOLITA BOUCHER - Last Filed: 07/26/17 14:14> Assessment and Plan Assessment and plan: 66 y/o AAF with no significant PMH comes last night for acute onset of abdominal pain associated with nausea and vomiting .Apparently she had a large meal and did not chew properly.Has been vomiting the food she has ingested.Had CT abdomen this am which showed vascular torsion .Her symptoms resolved while in ER by the time she was evaluated by surgery. Surgery feels that volvulus / vascular torsion resolved spontaneously, but she is still having n/v Acute intestinal volvulus -has now resolved Intractable N/V appears to be related to hydralazine administration -dc hydralazine, phernegan prn GI following, abdominal x-ray showed small bowel obstruction NG tube discontinued, diet advanced to clears today, repeat abdominal x-ray today shows Mild improvement in the small bowel obstruction pattern since yesterday's exam Gastroparesis Appears to be chronic, GI following REEDER now resolved, did not respond to fioricet, so will dc it HTN urgency optimize meds, avoid hydralazine Lactic acidosis: due to Acute abdomen, now resolved; not due to sepsis Hypokalemia KCL supplemented DVT prophylaxis on Lovenox History Interval history: Patient seen and examined today. She states that she is feeling much better today. She denies chest pain, shortness of breath, nausea, vomiting. Labs and nursing notes reviewed. Hospitalist Physical - Constitutional Vitals: Temp Pulse Resp BP Pulse Ox 98.5 F 94 H 20 142/99 98 07/26/17 11:26 07/26/17 13:05 07/26/17 11:26 07/26/17 13:05 07/26/17 11:26 General appearance: Present: no acute distress, well-nourished - EENT Eyes: Present: PERRL, EOM intact ENT: hearing intact, clear oral mucosa, dentition normal - Neck Neck: Present: supple, normal ROM - Respiratory Respiratory effort: normal Respiratory: bilateral: CTA - Cardiovascular Rhythm: regular Heart Sounds: Present: S1 & S2 - Extremities Extremities: no ischemia, No edema - Abdominal General gastrointestinal: soft, non-tender, non-distended, hypoactive bowel sounds - Integumentary Integumentary: Present: clear, warm, dry - Psychiatric Psychiatric: appropriate mood/affect, cooperative - Neurologic Neurologic: CNII-XII intact, moves all extremities - Allied Health Allied health notes reviewed: nursing Results - Labs CBC & Chem 7: 07/25/17 05:06 07/26/17 10:01 Labs: Laboratory Last Values WBC 5.3 K/mm3 (4.5-11.0) 07/25/17 05:06 RBC 4.23 M/mm3 (3.65-5.03) 07/25/17 05:06 Hgb 11.9 gm/dl (10.1-14.3) 07/25/17 05:06 Hct 36.5 % (30.3-42.9) 07/25/17 05:06 MCV 86 fl (79-97) 07/25/17 05:06 MCH 28 pg (28-32) 07/25/17 05:06 MCHC 33 % (30-34) 07/25/17 05:06 RDW 13.9 % (13.2-15.2) 07/25/17 05:06 Plt Count 239 K/mm3 (140-440) 07/25/17 05:06 Lymph % (Auto) 28.9 % (13.4-35.0) 07/25/17 05:06 [place] % (Auto) 8.9 % (0.0-7.3) H 07/25/17 05:06 Eos % (Auto) 2.3 % (0.0-4.3) 07/25/17 05:06 Baso % (Auto) 0.9 % (0.0-1.8) 07/25/17 05:06 Lymph # 1.5 K/mm3 (1.2-5.4) 07/25/17 05:06 [place] # 0.5 K/mm3 (0.0-0.8) 07/25/17 05:06 Eos # 0.1 K/mm3 (0.0-0.4) 07/25/17 05:06 Baso # 0.0 K/mm3 (0.0-0.1) 07/25/17 05:06 Seg Neutrophils % 59.0 % (40.0-70.0) 07/25/17 05:06 Seg Neutrophils # 3.1 K/mm3 (1.8-7.7) 07/25/17 05:06 Sodium 141 mmol/L (137-145) 07/26/17 10:01 Potassium 3.9 mmol/L (3.6-5.0) 07/26/17 10:01 Chloride 106.3 mmol/L (98-107) 07/26/17 10:01 Carbon Dioxide 18 mmol/L (22-30) L 07/26/17 10:01 Anion Gap 21 mmol/L 07/26/17 10:01 BUN 9 mg/dL (7-17) 07/26/17 10:01 Creatinine 0.7 mg/dL (0.7-1.2) 07/26/17 10:01 Estimated GFR > 60 ml/min 07/26/17 10:01 BUN/Creatinine Ratio 13 % 07/26/17 10:01 Glucose 100 mg/dL (65-100) 07/26/17 10:01 Hemoglobin A1c 5.3 % (4-6) 07/20/17 20:11 Lactic Acid 2.80 mmol/L (0.7-2.0) H* 07/20/17 08:25 Calcium 9.3 mg/dL (8.4-10.2) 07/26/17 10:01 Phosphorus 2.20 mg/dL (2.5-4.5) L 07/22/17 08:26 Magnesium 2.00 mg/dL (1.7-2.3) 07/25/17 05:06 Total Bilirubin 0.50 mg/dL (0.1-1.2) 07/21/17 06:00 AST 24 units/L (5-40) 07/21/17 06:00 ALT 19 units/L (7-56) 07/21/17 06:00 Alkaline Phosphatase 86 units/L (35-129) 07/21/17 06:00 Total Protein 7.2 g/dL (6.3-8.2) 07/21/17 06:00 Albumin 3.9 g/dL (3.9-5) 07/21/17 06:00 Albumin/Globulin Ratio 1.2 % 07/21/17 06:00 Lipase 18 units/L (13-60) 07/20/17 03:38 Urine Color Yellow (Yellow) 07/20/17 11:20 Urine Turbidity Clear (Clear) 07/20/17 11:20 Urine pH 6.0 (5.0-7.0) 07/20/17 11:20 Ur Specific [place] 1.041 (1.003-1.030) H 07/20/17 11:20 Urine Protein <15 mg/dl mg/dL (Negative) 07/20/17 11:20 Urine Glucose (UA) Neg mg/dL (Negative) 07/20/17 11:20 Urine Ketones Tr mg/dL (Negative) 07/20/17 11:20 Urine Blood Neg (Negative) 07/20/17 11:20 Urine Nitrite Neg (Negative) 07/20/17 11:20 Urine Bilirubin Neg (Negative) 07/20/17 11:20 Urine Urobilinogen < 2.0 mg/dL (<2.0) 07/20/17 11:20 Ur Leukocyte Esterase Tr (Negative) 07/20/17 11:20 Urine WBC (Auto) 6.0 /HPF (0.0-6.0) 07/20/17 11:20 Urine RBC (Auto) 1.0 /HPF (0.0-6.0) 07/20/17 11:20 U Epithel Cells (Auto) 1.0 /HPF (0-13.0) 07/20/17 11:20 Urine Bacteria (Auto) 1+ /HPF (Negative) 07/20/17 11:20 <SOFY ALLISON - Last Filed: 07/26/17 18:15> Hospitalist Physical - Constitutional Vitals: Temp Pulse Resp BP Pulse Ox 98.5 F 87 20 157/89 96 07/26/17 15:52 07/26/17 15:52 07/26/17 15:52 07/26/17 15:52 07/26/17 15:52 Results - Labs CBC & Chem 7: 07/25/17 05:06 07/26/17 10:01 Labs: Laboratory Last Values WBC 5.3 K/mm3 (4.5-11.0) 07/25/17 05:06 RBC 4.23 M/mm3 (3.65-5.03) 07/25/17 05:06 Hgb 11.9 gm/dl (10.1-14.3) 07/25/17 05:06 Hct 36.5 % (30.3-42.9) 07/25/17 05:06 MCV 86 fl (79-97) 07/25/17 05:06 MCH 28 pg (28-32) 07/25/17 05:06 MCHC 33 % (30-34) 07/25/17 05:06 RDW 13.9 % (13.2-15.2) 07/25/17 05:06 Plt Count 239 K/mm3 (140-440) 07/25/17 05:06 Lymph % (Auto) 28.9 % (13.4-35.0) 07/25/17 05:06 [place] % (Auto) 8.9 % (0.0-7.3) H 07/25/17 05:06 Eos % (Auto) 2.3 % (0.0-4.3) 07/25/17 05:06 Baso % (Auto) 0.9 % (0.0-1.8) 07/25/17 05:06 Lymph # 1.5 K/mm3 (1.2-5.4) 07/25/17 05:06 [place] # 0.5 K/mm3 (0.0-0.8) 07/25/17 05:06 Eos # 0.1 K/mm3 (0.0-0.4) 07/25/17 05:06 Baso # 0.0 K/mm3 (0.0-0.1) 07/25/17 05:06 Seg Neutrophils % 59.0 % (40.0-70.0) 07/25/17 05:06 Seg Neutrophils # 3.1 K/mm3 (1.8-7.7) 07/25/17 05:06 Sodium 141 mmol/L (137-145) 07/26/17 10:01 Potassium 3.9 mmol/L (3.6-5.0) 07/26/17 10:01 Chloride 106.3 mmol/L (98-107) 07/26/17 10:01 Carbon Dioxide 18 mmol/L (22-30) L 07/26/17 10:01 Anion Gap 21 mmol/L 07/26/17 10:01 BUN 9 mg/dL (7-17) 07/26/17 10:01 Creatinine 0.7 mg/dL (0.7-1.2) 07/26/17 10:01 Estimated GFR > 60 ml/min 07/26/17 10:01 BUN/Creatinine Ratio 13 % 07/26/17 10:01 Glucose 100 mg/dL (65-100) 07/26/17 10:01 Hemoglobin A1c 5.3 % (4-6) 07/20/17 20:11 Lactic Acid 2.80 mmol/L (0.7-2.0) H* 07/20/17 08:25 Calcium 9.3 mg/dL (8.4-10.2) 07/26/17 10:01 Phosphorus 2.20 mg/dL (2.5-4.5) L 07/22/17 08:26 Magnesium 2.00 mg/dL (1.7-2.3) 07/25/17 05:06 Total Bilirubin 0.50 mg/dL (0.1-1.2) 07/21/17 06:00 AST 24 units/L (5-40) 07/21/17 06:00 ALT 19 units/L (7-56) 07/21/17 06:00 Alkaline Phosphatase 86 units/L (35-129) 07/21/17 06:00 Total Protein 7.2 g/dL (6.3-8.2) 07/21/17 06:00 Albumin 3.9 g/dL (3.9-5) 07/21/17 06:00 Albumin/Globulin Ratio 1.2 % 07/21/17 06:00 Lipase 18 units/L (13-60) 07/20/17 03:38 Urine Color Yellow (Yellow) 07/20/17 11:20 Urine Turbidity Clear (Clear) 07/20/17 11:20 Urine pH 6.0 (5.0-7.0) 07/20/17 11:20 Ur Specific [place] 1.041 (1.003-1.030) H 07/20/17 11:20 Urine Protein <15 mg/dl mg/dL (Negative) 07/20/17 11:20 Urine Glucose (UA) Neg mg/dL (Negative) 07/20/17 11:20 Urine Ketones Tr mg/dL (Negative) 07/20/17 11:20 Urine Blood Neg (Negative) 07/20/17 11:20 Urine Nitrite Neg (Negative) 07/20/17 11:20 Urine Bilirubin Neg (Negative) 07/20/17 11:20 Urine Urobilinogen < 2.0 mg/dL (<2.0) 07/20/17 11:20 Ur Leukocyte Esterase Tr (Negative) 07/20/17 11:20 Urine WBC (Auto) 6.0 /HPF (0.0-6.0) 07/20/17 11:20 Urine RBC (Auto) 1.0 /HPF (0.0-6.0) 07/20/17 11:20 U Epithel Cells (Auto) 1.0 /HPF (0-13.0) 07/20/17 11:20 Urine Bacteria (Auto) 1+ /HPF (Negative) 07/20/17 11:20
[2017-07-26] MEDS: LOVENOX SUB-Q SCH (21:34)
[2017-07-26] MEDS: MORPHINE IV PRN (21:35)
[2017-07-27] MEDS: ATIVAN IV PRN ×2 (00:38→21:58)
[2017-07-27] MEDS: APRESOLINE IV SCH ×3 (02:43→18:50)
[2017-07-27] MEDS: PERCOCET 5/325 PO PRN ×2 (04:41→19:54)
[2017-07-27] MEDS: D5NS 1,000 ML IV SCH ×2 (06:55→17:05)
--- NOTE | 2017-07-27 09:22 | Progress Note ---
<LOLITA BOUCHER - Last Filed: 07/27/17 14:03> Assessment and Plan Assessment and plan: 66 y/o AAF with no significant PMH comes last night for acute onset of abdominal pain associated with nausea and vomiting .Apparently she had a large meal and did not chew properly.Has been vomiting the food she has ingested.Had CT abdomen this am which showed vascular torsion .Her symptoms resolved while in ER by the time she was evaluated by surgery. Surgery feels that volvulus / vascular torsion resolved spontaneously, but she is still having n/v Acute intestinal volvulus -has now resolved Intractable N/V appears to be related to hydralazine administration -dc hydralazine, phernegan prn GI following, abdominal x-ray showed small bowel obstruction NG tube discontinued, diet advanced to clears today, repeat abdominal x-ray today shows Mild improvement in the small bowel obstruction pattern since yesterday's exam Gastroparesis Appears to be chronic, GI following REEDER now resolved, did not respond to fioricet, so will dc it HTN urgency optimize meds, avoid hydralazine Lactic acidosis: due to Acute abdomen, now resolved; not due to sepsis Hypokalemia KCL supplemented DVT prophylaxis on Lovenox History Interval history: Patient seen and examined today. She states that she is feeling much better today. She denies chest pain, shortness of breath, nausea, vomiting. Labs and nursing notes reviewed. Hospitalist Physical - Constitutional Vitals: Temp Pulse Resp BP Pulse Ox 98.4 F 87 20 152/88 97 07/27/17 08:13 07/27/17 08:13 07/27/17 08:13 07/27/17 08:13 07/27/17 08:13 General appearance: Present: no acute distress, well-nourished - EENT Eyes: Present: PERRL, EOM intact ENT: hearing intact, clear oral mucosa - Neck Neck: Present: supple, normal ROM - Respiratory Respiratory effort: normal Respiratory: bilateral: CTA - Cardiovascular Rhythm: regular Heart Sounds: Present: S1 & S2 - Extremities Extremities: no ischemia, No edema - Abdominal General gastrointestinal: soft, non-tender, non-distended - Integumentary Integumentary: Present: clear, warm, dry - Psychiatric Psychiatric: appropriate mood/affect, cooperative - Neurologic Neurologic: CNII-XII intact, moves all extremities - Allied Health Allied health notes reviewed: nursing Results - Labs CBC & Chem 7: 07/25/17 05:06 07/27/17 10:11 Labs: Laboratory Last Values WBC 5.3 K/mm3 (4.5-11.0) 07/25/17 05:06 RBC 4.23 M/mm3 (3.65-5.03) 07/25/17 05:06 Hgb 11.9 gm/dl (10.1-14.3) 07/25/17 05:06 Hct 36.5 % (30.3-42.9) 07/25/17 05:06 MCV 86 fl (79-97) 07/25/17 05:06 MCH 28 pg (28-32) 07/25/17 05:06 MCHC 33 % (30-34) 07/25/17 05:06 RDW 13.9 % (13.2-15.2) 07/25/17 05:06 Plt Count 239 K/mm3 (140-440) 07/25/17 05:06 Lymph % (Auto) 28.9 % (13.4-35.0) 07/25/17 05:06 [place] % (Auto) 8.9 % (0.0-7.3) H 07/25/17 05:06 Eos % (Auto) 2.3 % (0.0-4.3) 07/25/17 05:06 Baso % (Auto) 0.9 % (0.0-1.8) 07/25/17 05:06 Lymph # 1.5 K/mm3 (1.2-5.4) 07/25/17 05:06 [place] # 0.5 K/mm3 (0.0-0.8) 07/25/17 05:06 Eos # 0.1 K/mm3 (0.0-0.4) 07/25/17 05:06 Baso # 0.0 K/mm3 (0.0-0.1) 07/25/17 05:06 Seg Neutrophils % 59.0 % (40.0-70.0) 07/25/17 05:06 Seg Neutrophils # 3.1 K/mm3 (1.8-7.7) 07/25/17 05:06 Sodium 141 mmol/L (137-145) 07/26/17 10:01 Potassium 3.9 mmol/L (3.6-5.0) 07/26/17 10:01 Chloride 106.3 mmol/L (98-107) 07/26/17 10:01 Carbon Dioxide 18 mmol/L (22-30) L 07/26/17 10:01 Anion Gap 21 mmol/L 07/26/17 10:01 BUN 9 mg/dL (7-17) 07/26/17 10:01 Creatinine 0.7 mg/dL (0.7-1.2) 07/26/17 10:01 Estimated GFR > 60 ml/min 07/26/17 10:01 BUN/Creatinine Ratio 13 % 07/26/17 10:01 Glucose 100 mg/dL (65-100) 07/26/17 10:01 Hemoglobin A1c 5.3 % (4-6) 07/20/17 20:11 Lactic Acid 2.80 mmol/L (0.7-2.0) H* 07/20/17 08:25 Calcium 9.3 mg/dL (8.4-10.2) 07/26/17 10:01 Phosphorus 2.20 mg/dL (2.5-4.5) L 07/22/17 08:26 Magnesium 2.00 mg/dL (1.7-2.3) 07/25/17 05:06 Total Bilirubin 0.50 mg/dL (0.1-1.2) 07/21/17 06:00 AST 24 units/L (5-40) 07/21/17 06:00 ALT 19 units/L (7-56) 07/21/17 06:00 Alkaline Phosphatase 86 units/L (35-129) 07/21/17 06:00 Total Protein 7.2 g/dL (6.3-8.2) 07/21/17 06:00 Albumin 3.9 g/dL (3.9-5) 07/21/17 06:00 Albumin/Globulin Ratio 1.2 % 07/21/17 06:00 Lipase 18 units/L (13-60) 07/20/17 03:38 Urine Color Yellow (Yellow) 07/20/17 11:20 Urine Turbidity Clear (Clear) 07/20/17 11:20 Urine pH 6.0 (5.0-7.0) 07/20/17 11:20 Ur Specific [place] 1.041 (1.003-1.030) H 07/20/17 11:20 Urine Protein <15 mg/dl mg/dL (Negative) 07/20/17 11:20 Urine Glucose (UA) Neg mg/dL (Negative) 07/20/17 11:20 Urine Ketones Tr mg/dL (Negative) 07/20/17 11:20 Urine Blood Neg (Negative) 07/20/17 11:20 Urine Nitrite Neg (Negative) 07/20/17 11:20 Urine Bilirubin Neg (Negative) 07/20/17 11:20 Urine Urobilinogen < 2.0 mg/dL (<2.0) 07/20/17 11:20 Ur Leukocyte Esterase Tr (Negative) 07/20/17 11:20 Urine WBC (Auto) 6.0 /HPF (0.0-6.0) 07/20/17 11:20 Urine RBC (Auto) 1.0 /HPF (0.0-6.0) 07/20/17 11:20 U Epithel Cells (Auto) 1.0 /HPF (0-13.0) 07/20/17 11:20 Urine Bacteria (Auto) 1+ /HPF (Negative) 07/20/17 11:20 <SOFY ALLISON - Last Filed: 07/27/17 19:54> Hospitalist Physical - Constitutional Vitals: Temp Pulse Resp BP Pulse Ox 99.1 F 88 20 163/85 97 07/27/17 16:41 07/27/17 18:50 07/27/17 16:41 07/27/17 18:50 07/27/17 16:41 Results - Labs CBC & Chem 7: 07/25/17 05:06 07/27/17 10:11 Labs: Laboratory Last Values WBC 5.3 K/mm3 (4.5-11.0) 07/25/17 05:06 RBC 4.23 M/mm3 (3.65-5.03) 07/25/17 05:06 Hgb 11.9 gm/dl (10.1-14.3) 07/25/17 05:06 Hct 36.5 % (30.3-42.9) 07/25/17 05:06 MCV 86 fl (79-97) 07/25/17 05:06 MCH 28 pg (28-32) 07/25/17 05:06 MCHC 33 % (30-34) 07/25/17 05:06 RDW 13.9 % (13.2-15.2) 07/25/17 05:06 Plt Count 239 K/mm3 (140-440) 07/25/17 05:06 Lymph % (Auto) 28.9 % (13.4-35.0) 07/25/17 05:06 [place] % (Auto) 8.9 % (0.0-7.3) H 07/25/17 05:06 Eos % (Auto) 2.3 % (0.0-4.3) 07/25/17 05:06 Baso % (Auto) 0.9 % (0.0-1.8) 07/25/17 05:06 Lymph # 1.5 K/mm3 (1.2-5.4) 07/25/17 05:06 [place] # 0.5 K/mm3 (0.0-0.8) 07/25/17 05:06 Eos # 0.1 K/mm3 (0.0-0.4) 07/25/17 05:06 Baso # 0.0 K/mm3 (0.0-0.1) 07/25/17 05:06 Seg Neutrophils % 59.0 % (40.0-70.0) 07/25/17 05:06 Seg Neutrophils # 3.1 K/mm3 (1.8-7.7) 07/25/17 05:06 Sodium 143 mmol/L (137-145) 07/27/17 10:11 Potassium 3.5 mmol/L (3.6-5.0) L 07/27/17 10:11 Chloride 105.7 mmol/L (98-107) 07/27/17 10:11 Carbon Dioxide 21 mmol/L (22-30) L 07/27/17 10:11 Anion Gap 20 mmol/L 07/27/17 10:11 BUN 6 mg/dL (7-17) L 07/27/17 10:11 Creatinine 0.7 mg/dL (0.7-1.2) 07/27/17 10:11 Estimated GFR > 60 ml/min 07/27/17 10:11 BUN/Creatinine Ratio 9 % 07/27/17 10:11 Glucose 112 mg/dL (65-100) H 07/27/17 10:11 Hemoglobin A1c 5.3 % (4-6) 07/20/17 20:11 Lactic Acid 2.80 mmol/L (0.7-2.0) H* 07/20/17 08:25 Calcium 9.3 mg/dL (8.4-10.2) 07/27/17 10:11 Phosphorus 2.20 mg/dL (2.5-4.5) L 07/22/17 08:26 Magnesium 2.00 mg/dL (1.7-2.3) 07/25/17 05:06 Total Bilirubin 0.50 mg/dL (0.1-1.2) 07/21/17 06:00 AST 24 units/L (5-40) 07/21/17 06:00 ALT 19 units/L (7-56) 07/21/17 06:00 Alkaline Phosphatase 86 units/L (35-129) 07/21/17 06:00 Total Protein 7.2 g/dL (6.3-8.2) 07/21/17 06:00 Albumin 3.9 g/dL (3.9-5) 07/21/17 06:00 Albumin/Globulin Ratio 1.2 % 07/21/17 06:00 Lipase 18 units/L (13-60) 07/20/17 03:38 Urine Color Yellow (Yellow) 07/20/17 11:20 Urine Turbidity Clear (Clear) 07/20/17 11:20 Urine pH 6.0 (5.0-7.0) 07/20/17 11:20 Ur Specific [place] 1.041 (1.003-1.030) H 07/20/17 11:20 Urine Protein <15 mg/dl mg/dL (Negative) 07/20/17 11:20 Urine Glucose (UA) Neg mg/dL (Negative) 07/20/17 11:20 Urine Ketones Tr mg/dL (Negative) 07/20/17 11:20 Urine Blood Neg (Negative) 07/20/17 11:20 Urine Nitrite Neg (Negative) 07/20/17 11:20 Urine Bilirubin Neg (Negative) 07/20/17 11:20 Urine Urobilinogen < 2.0 mg/dL (<2.0) 07/20/17 11:20 Ur Leukocyte Esterase Tr (Negative) 07/20/17 11:20 Urine WBC (Auto) 6.0 /HPF (0.0-6.0) 07/20/17 11:20 Urine RBC (Auto) 1.0 /HPF (0.0-6.0) 07/20/17 11:20 U Epithel Cells (Auto) 1.0 /HPF (0-13.0) 07/20/17 11:20 Urine Bacteria (Auto) 1+ /HPF (Negative) 07/20/17 11:20
[2017-07-27] MEDS: PEPCID IV SCH (10:50)
[2017-07-27] MEDS: ZESTRIL PO SCH (10:50)
[2017-07-27] MEDS: CATAPRES PO SCH ×2 (10:51→21:51)
--- NOTE | 2017-07-27 10:53 | Progress Note ---
Assessment and Plan - Patient Problems (1) Small bowel obstruction Current Visit: Yes Status: Acute Plan to address problem: Pt stable. Almost appears back to normal. She looks really good today. Yesterday's abdominal x-ray shows improvement. More importantly, she feels much better today. I have advised her to take more clear liquids today. I will repeat the abdominal film tomorrow and advise on diet advancement. Please call if there any questions time=20min Subjective Patient Reports: Positive: no new complaints, feels better, tolerating liquids well (sipping liquids as I instructed. ), bowel movement. Negative: nausea, vomiting Objective Vital Signs - 12hr 07/26/17 07/27/17 07/27/17 23:51 02:43 04:24 Temperature 98.7 F 98.3 F Pulse Rate 87 76 82 Respiratory 16 16 Rate Blood Pressure 118/80 105/64 123/78 O2 Sat by Pulse 95 95 Oximetry 07/27/17 07/27/17 04:41 08:13 Temperature 98.4 F Pulse Rate 87 Respiratory 20 20 Rate Blood Pressure 152/88 O2 Sat by Pulse 97 Oximetry - General physical appearance well developed, well nourished, no distress, no pain, other (sitting at bedside drinking lemonade) - Eyes normal occular movement - Respiratory normal expansion, normal respiratory effort - Abdomen soft, not tender, not distended, not guarding, not rigid - Neurologic normal coordination, normal sensation - Psychiatric oriented to time, oriented to person, oriented to place, speech is normal, memory intact - Labs 07/25/17 05:06 07/26/17 10:01 - Imaging Abdominal x-ray: report reviewed, image reviewed (small bowel distention is less )
[2017-07-27 11:36] LABS: BUN/Creatinine Ratio 9; Blood Urea Nitrogen 6 mg/dL (7-17); Calcium 9.3 mg/dL (8.4-10.2); Hemolysis Index 11
[2017-07-27] MEDS ORDERED: K-DUR PO ONE (12:00)
[2017-07-27] MEDS: PEPCID PO SCH (21:51)
[2017-07-27] MEDS: LOVENOX SUB-Q SCH (21:52)
[2017-07-28] MEDS: APRESOLINE IV SCH ×3 (03:54→18:09)
[2017-07-28 09:43] LABS: Basophils % (Auto) 0.8 % (0.0-1.8); Eosinophils # (Auto) 0.1 K/mm3 (0.0-0.4); Eosinophils % (Auto) 3.3 % (0.0-4.3); Hematocrit 35.5 % (30.3-42.9); Hemoglobin 11.8 gm/dl (10.1-14.3); Lymphocytes # (Auto) 1.1 K/mm3 (1.2-5.4); Lymphocytes % (Auto) 25.4 % (13.4-35.0); Mean Corpuscular HGB Conc 33 % (30-34); Mean Corpuscular Hemoglobin 28 pg (28-32); Mean Corpuscular Volume 85 fl (79-97); Monocytes # (Auto) 0.4 K/mm3 (0.0-0.8); Monocytes % (Auto) 9.6 % (0.0-7.3); Platelet Count 305 K/mm3 (140-440); Red Blood Count 4.16 M/mm3 (3.65-5.03); Red Cell Distribution Width 14.1 % (13.2-15.2)
[2017-07-28] MEDS: ZESTRIL PO SCH (09:53)
[2017-07-28] MEDS: CATAPRES PO SCH ×2 (09:53→23:33)
[2017-07-28] MEDS: PEPCID PO SCH ×2 (09:53→23:33)
[2017-07-28] MEDS: PERCOCET 5/325 PO PRN (09:54)
--- NOTE | 2017-07-28 09:58 | XRay Report ---
Abdomen 2 views: History: Small bowel obstruction. Findings: No free intraperitoneal air. Few distended loops of small bowel. Moderate amount of fat in colon. No wall thickening. No radiopaque calculus or abnormal calcification. Impression: Few distended loops of small bowel. Decrease in diameter of distended loops of small bowel compared to previous study. Followup advised.
[2017-07-28 10:01] LABS: BUN/Creatinine Ratio 5; Blood Urea Nitrogen 3 mg/dL (7-17); Calcium 9.3 mg/dL (8.4-10.2); Hemolysis Index 13
--- NOTE | 2017-07-28 14:08 | Progress Note ---
Assessment and Plan - Patient Problems (1) Small bowel obstruction Current Visit: Yes Status: Acute Plan to address problem: Pt stable. Almost appears back to normal. She continues to look good. Today's abdominal x-ray shows improvement. More importantly, she feels much better today. I have advised her to try the full liquids today. We will repeat the abdominal film tomorrow and advise on diet advancement. Please call if there any questions time=20min Subjective Date of service: 07/28/17 Patient Reports: Positive: no new complaints, feels better, tolerating liquids well. Negative: nausea, vomiting Objective Vital Signs - 12hr 07/28/17 07/28/17 07/28/17 02:55 03:54 07:48 Temperature 98.2 F 98.9 F Pulse Rate 84 89 83 Respiratory 18 20 Rate Blood Pressure 132/85 149/88 132/80 O2 Sat by Pulse 96 97 Oximetry 07/28/17 07/28/17 07/28/17 09:53 11:09 11:13 Temperature Pulse Rate 83 Respiratory Rate Blood Pressure 132/80 116/64 116/64 O2 Sat by Pulse Oximetry - General physical appearance well developed, well nourished, no distress, no pain, other (looks well) - Respiratory normal expansion, normal respiratory effort - Abdomen soft, not tender, not distended, not guarding, not rigid - Labs 07/28/17 09:21 07/28/17 09:21 Diabetes panel 07/28/17 Range/Units 09:21 Sodium 142 (137-145) mmol/L Potassium 3.5 L (3.6-5.0) mmol/L Chloride 107.0 (98-107) mmol/L Carbon Dioxide 20 L (22-30) mmol/L BUN 3 L (7-17) mg/dL Creatinine 0.6 L (0.7-1.2) mg/dL Glucose 96 (65-100) mg/dL Calcium 9.3 (8.4-10.2) mg/dL Calcium panel 07/28/17 Range/Units 09:21 Calcium 9.3 (8.4-10.2) mg/dL Phosphorus 2.30 L (2.5-4.5) mg/dL Pituitary panel 07/28/17 Range/Units 09:21 Sodium 142 (137-145) mmol/L Potassium 3.5 L (3.6-5.0) mmol/L Chloride 107.0 (98-107) mmol/L Carbon Dioxide 20 L (22-30) mmol/L BUN 3 L (7-17) mg/dL Creatinine 0.6 L (0.7-1.2) mg/dL Glucose 96 (65-100) mg/dL Calcium 9.3 (8.4-10.2) mg/dL Adrenal panel 07/28/17 Range/Units 09:21 Sodium 142 (137-145) mmol/L Potassium 3.5 L (3.6-5.0) mmol/L Chloride 107.0 (98-107) mmol/L Carbon Dioxide 20 L (22-30) mmol/L BUN 3 L (7-17) mg/dL Creatinine 0.6 L (0.7-1.2) mg/dL Glucose 96 (65-100) mg/dL Calcium 9.3 (8.4-10.2) mg/dL - Imaging Abdominal x-ray: report reviewed, image reviewed
[2017-07-28] MEDS: D5NS 1,000 ML IV SCH (15:13)
[2017-07-28] MEDS: K-PHOS NEUTRAL PO SCH ×3 (15:15→23:30)
--- NOTE | 2017-07-28 20:53 | Progress Note ---
Assessment and Plan Assessment and plan: --Small bowel obstruction; significant improvement Advanced the diet to full liquids, and soft diet as tolerated Repeat abdominal x-ray tomorrow, if continued improvement discharge home --Intractable nausea vomiting; resolved, supportive care --Hypertension; moderate control, continue current antihypertensives and when necessary medications --Lactic acidosis; secondary to underlying condition, resolved --Hypokalemia; replenish per protocol and monitor levels --DVT prophylaxis; Lovenox Ambulate as tolerated Possible discharge home tomorrow if stable Plan of care discussed with the patient and her nurse I also discussed the case with the surgeon History Interval history: Patient seen and examined, Medical records reviewed Feels better no new complaints Tolerating full liquid diet, Had a bowel movement X-ray abdomen significant improvement Vital signs reviewed Hospitalist Physical - Constitutional Vitals: Temp Pulse Resp BP Pulse Ox 99.2 F 84 18 149/85 98 07/28/17 19:59 07/28/17 19:59 07/28/17 19:59 07/28/17 19:59 07/28/17 19:59 General appearance: Present: no acute distress, well-nourished - EENT Eyes: Present: PERRL, EOM intact - Neck Neck: Present: supple, normal ROM - Respiratory Respiratory effort: normal Respiratory: negative: rales, rhonchi, wheezing - Cardiovascular Rhythm: regular Heart Sounds: Present: S1 & S2 - Extremities Extremities: no ischemia, No edema - Abdominal General gastrointestinal: soft, non-tender, non-distended, normal bowel sounds - Integumentary Integumentary: Present: clear, warm - Psychiatric Psychiatric: appropriate mood/affect, cooperative - Neurologic Neurologic: CNII-XII intact, moves all extremities Results - Labs CBC & Chem 7: 07/28/17 09:21 07/28/17 09:21 Labs: Laboratory Last Values WBC 4.2 K/mm3 (4.5-11.0) L 07/28/17 09:21 RBC 4.16 M/mm3 (3.65-5.03) 07/28/17 09:21 Hgb 11.8 gm/dl (10.1-14.3) 07/28/17 09:21 Hct 35.5 % (30.3-42.9) 07/28/17 09:21 MCV 85 fl (79-97) 07/28/17 09:21 MCH 28 pg (28-32) 07/28/17 09:21 MCHC 33 % (30-34) 07/28/17 09:21 RDW 14.1 % (13.2-15.2) 07/28/17 09:21 Plt Count 305 K/mm3 (140-440) 07/28/17 09:21 Lymph % (Auto) 25.4 % (13.4-35.0) 07/28/17 09:21 [place] % (Auto) 9.6 % (0.0-7.3) H 07/28/17 09:21 Eos % (Auto) 3.3 % (0.0-4.3) 07/28/17 09:21 Baso % (Auto) 0.8 % (0.0-1.8) 07/28/17 09:21 Lymph # 1.1 K/mm3 (1.2-5.4) L 07/28/17 09:21 [place] # 0.4 K/mm3 (0.0-0.8) 07/28/17 09:21 Eos # 0.1 K/mm3 (0.0-0.4) 07/28/17 09:21 Baso # 0.0 K/mm3 (0.0-0.1) 07/28/17 09:21 Seg Neutrophils % 60.9 % (40.0-70.0) 07/28/17 09:21 Seg Neutrophils # 2.5 K/mm3 (1.8-7.7) 07/28/17 09:21 Sodium 142 mmol/L (137-145) 07/28/17 09:21 Potassium 3.5 mmol/L (3.6-5.0) L 07/28/17 09:21 Chloride 107.0 mmol/L (98-107) 07/28/17 09:21 Carbon Dioxide 20 mmol/L (22-30) L 07/28/17 09:21 Anion Gap 19 mmol/L 07/28/17 09:21 BUN 3 mg/dL (7-17) L 07/28/17 09:21 Creatinine 0.6 mg/dL (0.7-1.2) L 07/28/17 09:21 Estimated GFR > 60 ml/min 07/28/17 09:21 BUN/Creatinine Ratio 5 % 07/28/17 09:21 Glucose 96 mg/dL (65-100) 07/28/17 09:21 POC Glucose 131 (70-105) H 07/28/17 11:58 Hemoglobin A1c 5.3 % (4-6) 07/20/17 20:11 Lactic Acid 2.80 mmol/L (0.7-2.0) H* 07/20/17 08:25 Calcium 9.3 mg/dL (8.4-10.2) 07/28/17 09:21 Phosphorus 2.30 mg/dL (2.5-4.5) L 07/28/17 09:21 Magnesium 2.00 mg/dL (1.7-2.3) 07/28/17 09:21 Total Bilirubin 0.50 mg/dL (0.1-1.2) 07/21/17 06:00 AST 24 units/L (5-40) 07/21/17 06:00 ALT 19 units/L (7-56) 07/21/17 06:00 Alkaline Phosphatase 86 units/L (35-129) 07/21/17 06:00 Total Protein 7.2 g/dL (6.3-8.2) 07/21/17 06:00 Albumin 3.9 g/dL (3.9-5) 07/21/17 06:00 Albumin/Globulin Ratio 1.2 % 07/21/17 06:00 Lipase 18 units/L (13-60) 07/20/17 03:38 Urine Color Yellow (Yellow) 07/20/17 11:20 Urine Turbidity Clear (Clear) 07/20/17 11:20 Urine pH 6.0 (5.0-7.0) 07/20/17 11:20 Ur Specific [place] 1.041 (1.003-1.030) H 07/20/17 11:20 Urine Protein <15 mg/dl mg/dL (Negative) 07/20/17 11:20 Urine Glucose (UA) Neg mg/dL (Negative) 07/20/17 11:20 Urine Ketones Tr mg/dL (Negative) 07/20/17 11:20 Urine Blood Neg (Negative) 07/20/17 11:20 Urine Nitrite Neg (Negative) 07/20/17 11:20 Urine Bilirubin Neg (Negative) 07/20/17 11:20 Urine Urobilinogen < 2.0 mg/dL (<2.0) 07/20/17 11:20 Ur Leukocyte Esterase Tr (Negative) 07/20/17 11:20 Urine WBC (Auto) 6.0 /HPF (0.0-6.0) 07/20/17 11:20 Urine RBC (Auto) 1.0 /HPF (0.0-6.0) 07/20/17 11:20 U Epithel Cells (Auto) 1.0 /HPF (0-13.0) 07/20/17 11:20 Urine Bacteria (Auto) 1+ /HPF (Negative) 07/20/17 11:20
[2017-07-28] MEDS: LOVENOX SUB-Q SCH (23:27)
[2017-07-28] MEDS: ATIVAN IV PRN (23:28)
[2017-07-28] MEDS: MYLICON PO PRN (23:32)
[2017-07-29] MEDS: D5NS 1,000 ML IV SCH (00:56)
[2017-07-29] MEDS: APRESOLINE IV SCH ×2 (02:55→13:58)
[2017-07-29] MEDS: PERCOCET 5/325 PO PRN (08:28)
--- NOTE | 2017-07-29 09:56 | XRay Report ---
ABDOMEN, 2 views: History: Follow up small bowel obstruction. Further improvement in small bowel dilatation is demonstrated over multiple previous exams. There is a near normal bowel gas pattern on today's exam. A few mildly prominent small bowel loops remain in the epigastric region. Normal stool and gas in the colon. No free air or pathologic calcifications. The lung bases are clear. IMPRESSION: Further improvement in the partial small bowel obstruction pattern. Near normal abdominal films.
[2017-07-29] MEDS: K-PHOS NEUTRAL PO SCH ×2 (10:53→15:04)
[2017-07-29] MEDS: CATAPRES PO SCH (10:54)
[2017-07-29] MEDS: ZESTRIL PO SCH (10:56)
[2017-07-29] MEDS: PEPCID PO SCH (10:56)
[2017-07-29 10:57] VITALS: BP 138/77
--- NOTE | 2017-07-29 11:19 | Progress Note ---
Assessment and Plan - Patient Problems (1) Small bowel obstruction Current Visit: Yes Status: Acute Plan to address problem: Pt stable. Looks well. no concerns on my part. The x-ray is improving, but not completely back to normal. I think she is fine for discharge today. I have advised her to stay on a full liquid type of diet for the next week. She can f/ u with me in a week and I would like to get a f/u x-ray to document resolution of this issue. Ok to d/c home today from my standpoint. Please call if there any questions time=20min Subjective Patient Reports: Positive: no new complaints, feels better, tolerating liquids well. Negative: nausea, vomiting Objective Vital Signs - 12hr 07/28/17 07/29/17 07/29/17 23:33 02:55 04:38 Temperature 98.6 F Pulse Rate 88 74 85 Respiratory 18 Rate Blood Pressure 149/85 154/87 135/75 O2 Sat by Pulse 98 Oximetry 07/29/17 07/29/17 07/29/17 04:43 07:29 10:54 Temperature 98.9 F 98.8 F Pulse Rate 106 H 81 85 Respiratory 22 20 Rate Blood Pressure 135/67 146/86 138/77 O2 Sat by Pulse 100 95 Oximetry 07/29/17 10:56 Temperature Pulse Rate Respiratory Rate Blood Pressure 138/77 O2 Sat by Pulse Oximetry - General physical appearance well developed, well nourished, no distress, no pain, other (looks well) - Eyes normal occular movement - Respiratory normal expansion, normal respiratory effort - Abdomen soft, not tender, bowel sounds normal, not distended, not guarding, not rigid - Neurologic normal coordination, normal sensation - Psychiatric oriented to time, oriented to person, oriented to place, speech is normal, memory intact - Labs 07/28/17 09:21 07/28/17 09:21 - Imaging Abdominal x-ray: report reviewed, image reviewed
--- NOTE | 2017-07-29 16:09 | Discharge Summary ---
Providers - Providers Date of Admission: 07/23/17 15:11 Date of discharge: 07/29/17 Attending physician: SOFY ALLISON 07/20/17 16:34 Consult to Physician [CONS] Routine Consulting Provider: GRACIELA PINEDA Reason For Exam: Abdominal Pain Place consult to:: Dr. Pineda Notified:: via his number Phone number called:: his number Was contact made?: Yes If yes, spoke with:: Dr Pineda Comment:: Dr. Swift ( dr) spoke with Dr. Pineda 07/23/17 15:02 Consult to Physician [CONS] Routine Consulting Provider: ANTONY JEAN Reason For Exam: intractable nausea vomiting/ gastroparesis Place consult to:: dr. jean Notified:: office Phone number called:: Was contact made?: Yes If yes, spoke with:: zoë Time called:: 15:56 Primary care physician: GENEVA KING Hospitalization Condition: Serious Disposition: DC-01 TO HOME OR SELFCARE Time spent for discharge: 32 min Core Measure Documentation - Palliative Care Palliative Care/ Comfort Measures: Not Applicable - Core Measures Any of the following diagnoses?: none Exam - Constitutional Vitals: Temp Pulse Resp BP Pulse Ox 98.8 F 85 20 138/77 95 07/29/17 07:29 07/29/17 10:54 07/29/17 07:29 07/29/17 10:56 07/29/17 07:29 General appearance: Present: no acute distress, well-nourished - EENT Eyes: Present: PERRL, EOM intact - Neck Neck: Present: supple, normal ROM - Respiratory Respiratory effort: normal Respiratory: negative: rales, rhonchi, wheezing - Cardiovascular Rhythm: regular Heart Sounds: Present: S1 & S2 - Extremities Extremities: no ischemia, No edema - Abdominal General gastrointestinal: Present: soft, non-tender, non-distended, normal bowel sounds - Integumentary Integumentary: Present: clear, warm - Musculoskeletal Musculoskeletal: strength equal bilaterally - Psychiatric Psychiatric: appropriate mood/affect, cooperative - Neurologic Neurologic: CNII-XII intact, moves all extremities Plan Activity: advance as tolerated Diet: advance as tolerated, other (full liquid diet, advance as tolerated) Additional Instructions: If you have severe abdominal pain or distention, intractable nausea vomiting. Contact [facility] or go to emergency room as needed Follow up with: GRACIELA PINEDA MD [Staff Physician] - 7 Days PRIMARY CAREMD [Referring] - 3-5 Days Prescriptions: cloNIDine [Catapres] 0.1 mg PO Q12HR #60 tablet Famotidine [Pepcid] 20 mg PO BID #20 tablet Lisinopril [Zestril TAB] 40 mg PO QDAY #30 tablet oxyCODONE /ACETAMINOPHEN [Percocet 5/325 mg] 1 tab PO TID PRN #15 tablet PRN Reason: Pain, Moderate (4-6) Other Discharge Orders: XR abdomen 2V Time Frame: 1 Week, Facility: [facility], Location: [facility]
== END 2017-07-29 18:20 | disposition home or self-care (01) | DRG 389 ==
LOC: ED 01:45 → 3A 16:27 → OBSVTOIN 07-23 15:11
PROVIDERS: ADMIT Internal Medicine; ATTEND Internal Medicine
PROC: 0D9670Z Drainage of Stomach with Drainage Device, Via Natural or Artificial Opening (ICD-10-PCS; principal; 2017-07-23)
DX: K56.600 Partial intestinal obstruction, unspecified as to cause (principal); E87.2 Acidosis; K56.2 Volvulus; I10 Essential (primary) hypertension; E86.0 Dehydration; K31.84 Gastroparesis; I16.0 Hypertensive urgency; E83.39 Other disorders of phosphorus metabolism; E87.6 Hypokalemia; Z90.710 Acquired absence of both cervix and uterus
CPT/HCPCS: 36415; 74018; 74019; 74177; 78264; 80048; 80053; 81001; 82140; 82962; 83036; 83690; 83735; 84100; 85025; 96374; 96375; A9541; G0378; J0360; J1170; J1650; J2060; J2270; J2405; J2543; J3480; J7030; J7040; J7042; Q9967